=== PATIENT | male | born 1935 | race Caucasian/White ===

== ENCOUNTER 2018-06-22 10:14 | Inpatient (IN) ==
[2018-06-22] MEDS ORDERED: SALINE LOCK IV FLUID XX ONE (12:42)
[2018-06-22] MEDS ORDERED: TYLENOL PO PRN (12:42)
[2018-06-22] MEDS ORDERED: ZOFRAN IV PRN (12:42)
--- NOTE | 2018-06-22 13:12 | Diag Imaging Result Doc PS360 ---
EXAM: CHEST-2 VIEWS HISTORY: short of breath TECHNIQUE: Chest three views COMPARISON: 11/21/2014 FINDINGS: The lungs are hyperexpanded. The heart is not enlarged. The vessels are small. There are no infiltrates. No pleural effusions. IMPRESSION: Emphysema Electronically signed by Nixon Hernandez 06/22/2018 1:09 PM
[2018-06-22 14:00] LABS: BASO# 0.02 X1000 (0.0-0.2); BASO% 0.3 % (0.0-0.8); EOS# 0.09 X1000 (0.0-0.7); EOS% 1.2 % (0.0-10.0); HEMATOCRIT 47.8 % (42.0-52.0); HEMOGLOBIN 15.5 g/dL (14.0-18.0); LYMPH% 27.6 % (20.5-51.1); MCH 28.7 PG (27-31); MCHC 32.4 g/dL (33-37); MCV 88.5 FL (81-99); MONO# 0.59 X1000 (0.11-0.59); MONO% 8.1 % (1.7-9.3); MPV 9.3 FL (7.4-10.4); NEUT# 4.55 X1000 (1.4-6.5); NEUT% 62.8 % (42.2-75.2); PLT 223 X1000 (130-400); RDW 14.4 % (11.5-14.5); WBC 7.25 X1000 (4.8-10.8)
[2018-06-22 14:22] LABS: AGAP 12; ALBUMIN 3.4 g/dL (3.5-5.0); ALKALINE PHOSPHATASE 91 U/L (32-122); BUN 5 mg/dL (8-22); CALCIUM 9.1 mg/dL (8.8-10.2); CHLORIDE 97 mmol/L (98-107); COSMO 278; CREATININE 0.6 mg/dL (0.7-1.2); ESTIMATED GFR > 60; GLUCOSE 116 mg/dL (70-104); GOT 18 U/L (10-34); GPT 13 U/L (10-44); POTASSIUM 3.5 mmol/L (3.5-5.1); SODIUM 140 mmol/L (136-145); TCO2 31 mmol/L (25-35); TOTAL PROTEIN 6.8 g/dL (6.3-8.3)
[2018-06-22 14:34] LABS: FREE T4 1.31 ng/dL (0.93-1.70); TSH 1.81 uIUmL (0.27-4.20)
[2018-06-22] MEDS: DUONEB (A & A) INH SCH ×3 (14:35→23:30)
[2018-06-22 14:43] LABS: ALLEN TEST YES; BE 4.6 mmoll (-3.0-3.0); BLOOD TYPE ARTERIAL; HCO3-(ACT) 28.3 mmoll (20.0-26.0); METHB 0.6 % (0.0-1.5); MODALITY ROOM AIR; O2(CT) 20.2 mL/dL (15.0-23.0); O2HB 90.4 % (95.0-99.0); PCO2(98.6) 48 mmHg (35-45); PO2(98.6) 57 mmHg (60-100); SAMPLE BLOOD; SAO2 94.1 % (95.0-100.0); THB 15.9 g/dL (11.5-17.4); pH(98.6) 7.41 (7.35-7.45)
[2018-06-22] MEDS ORDERED: LASIX IV ONE (17:14)
[2018-06-22] MEDS ORDERED: KLOR-CON PO ONE (17:15)
[2018-06-22] MEDS: LEVAQUIN 500 MG/D5W 500 MG/100 ML IVPB IV SCH (18:28)
[2018-06-22] MEDS: NICODERM PATCH TD PRN (18:28)
--- NOTE | 2018-06-22 19:33 | Diag Imaging Result Doc PS360 ---
CT ANGIOGRM PULMONARY ARTERIES - 06/22/2018 INDICATION: dyspnea/elevated d-dimer TECHNIQUE: Axial CT images were obtained after administering intravenous contrast. Coronal MIP images were generated. COMPARISON: None FINDINGS: There is no pulmonary embolism. Heart size is normal with no pericardial effusion. There is extremely dense calcified triple-vessel coronary artery disease. There is some bronchitis in the lung bases. No definite infiltrates. Upper abdominal images are unremarkable. There are advanced degenerative changes of the spine with bridging osteophytes throughout. No acute bony lesions. IMPRESSION: Negative for pulmonary embolism. Advanced coronary artery disease. Severe bronchitis. Advanced degeneration of the spine. This exam was performed using automated exposure control, adjustment of mA or kV according to patient size, and/or use of iterative reconstruction technique Electronically signed by Manuel Mccoy 06/22/2018 7:30 PM
[2018-06-22] MEDS: BREO ELLIPTA 200/25 MCG INH INH SCH (19:50)
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
[2018-06-22] MEDS: LOPRESSOR PO SCH (20:29)
[2018-06-22] MEDS: LIPITOR PO SCH (20:30)
[2018-06-22] MEDS: ROBITUSSIN-DM PO SCH (20:31)
[2018-06-22] MEDS: HALDOL IV PRN (20:47)
[2018-06-23] MEDS: ROBITUSSIN-DM PO SCH ×6 (00:17→22:27)
[2018-06-23] MEDS: DUONEB (A & A) INH SCH ×6 (03:25→23:21)
[2018-06-23 07:42] LABS: BASO# 0.02 X1000 (0.0-0.2); BASO% 0.2 % (0.0-0.8); EOS# 0.13 X1000 (0.0-0.7); EOS% 1.6 % (0.0-10.0); HEMATOCRIT 45.7 % (42.0-52.0); HEMOGLOBIN 15.5 g/dL (14.0-18.0); IMM GRAN# 0.02 X1000 (0.0-0.04); IMM GRAN% 0.2 % (0.0-0.5); LYMPH# 1.95 X1000 (1.2-3.4); MCH 29.5 PG (27-31); MCHC 33.9 g/dL (33-37); MONO% 11.1 % (1.7-9.3); MPV 9.3 FL (7.4-10.4); NEUT# 5.09 X1000 (1.4-6.5); NEUT% 62.9 % (42.2-75.2); PLT 219 X1000 (130-400); RBC 5.25 XMIL (4.7-6.1); RDW 14.5 % (11.5-14.5); WBC 8.11 X1000 (4.8-10.8)
[2018-06-23 08:18] LABS: AGAP 11; BUN 6 mg/dL (8-22); CHLORIDE 96 mmol/L (98-107); COSMO 277; CREATININE 0.8 mg/dL (0.7-1.2); ESTIMATED GFR > 60; GLUCOSE 124 mg/dL (70-104); POTASSIUM 3.4 mmol/L (3.5-5.1); SODIUM 139 mmol/L (136-145); TCO2 32 mmol/L (25-35)
[2018-06-23] MEDS: LOVENOX SUBQ SCH (09:49)
[2018-06-23] MEDS: LOPRESSOR PO SCH ×2 (09:49→22:27)
[2018-06-23] MEDS: BREO ELLIPTA 200/25 MCG INH INH SCH (10:04)
--- NOTE | 2018-06-23 11:31 | ECHO REPORT ---
ORDER DATE: 06/22/2018 INTERPRETING PHYSICIAN: Dr. Leija REQUESTING PHYSICIAN: Dr. Fink CLINICAL INDICATIONS: This is an 82-year-old male with coronary heart disease, stents, edema, COPD. The left ventricle cannot be measured by M-mode. The findings are only related to 2D images. M-MODE MEASUREMENTS: Right ventricle: cm. Left ventricle end diastole: cm. Left ventricle end systole: cm. Posterior wall: cm. Interventricular septum: cm. Left atrium: cm. Aortic root: cm. SUMMARY OF 2-DIMENSIONAL IMAGIN. The left ventricle shows preserved contractility. Ejection fraction is probably in the order of 65%. There is a small pericardial effusion. 2. The right ventricle is slightly prominent, it shows good function. 3. Mitral valve shows normal opening of the leaflets. 4. The pulse wave Doppler of mitral inflow shows fusion of the E and the A waves. I cannot evaluate diastolic function in this case. 5. Tricuspid valve shows no significant regurgitation. 6. Pulmonary pressure is grossly estimated at 24 to 29 mmHg. 7. The aortic valve is grossly unremarkable. The Doppler pattern of the aortic valve shows no evidence of stenosis or regurgitation. 8. The pulmonic valve was really not well appreciated in this case. It was actually not seen. CONCLUSIONS: In summary, this study is very limited. The patient has very poor acoustic windows. The left ventricular systolic function appears to be normal. There may be a small pericardial effusion located posteriorly. I do not see evidence of any significant valvular abnormality, although the pulmonic valve was not visualized. The aortic and mitral valves appear to be grossly unremarkable. Clinical correlation is strongly recommended. I suspect that there is impaired left ventricular relaxation. cc: MD Malik Ricardo MD
[2018-06-23] MEDS: HALDOL IV PRN (13:00)
[2018-06-23] MEDS ORDERED: HALDOL IV ONE (14:42)
[2018-06-23 15:10] LABS: ALLEN TEST YES; BE 6.8 mmoll (-3.0-3.0); BLOOD TYPE ARTERIAL; HCO3-(ACT) 30.1 mmoll (20.0-26.0); METHB 1.1 % (0.0-1.5); MODALITY ROOM AIR; O2(CT) 19.5 mL/dL (15.0-23.0); O2HB 91.9 % (95.0-99.0); PCO2(98.6) 46 mmHg (35-45); PO2(98.6) 60 mmHg (60-100); SAMPLE BLOOD; SAO2 94.9 % (95.0-100.0); THB 15.1 g/dL (11.5-17.4); pH(98.6) 7.45 (7.35-7.45)
[2018-06-23] MEDS ORDERED: ATIVAN PO ONE (15:52)
[2018-06-23] MEDS ORDERED: ASPIRIN EC PO SCH (16:15)
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
--- NOTE | 2018-06-23 16:56 | Diag Imaging Result Doc PS360 ---
EXAM: CT HEAD W/O CONTRAST INDICATION: ms change TECHNIQUE: This exam was performed using automated exposure control, adjustment of mA or kV according to patient size, and/or use of iterative reconstruction technique. COMPARISON: None. FINDINGS: There is moderate diffuse brain atrophy. There is patchy low attenuation in the periventricular and subcortical white matter suggesting mild to moderate microangiopathy. There is no definite acute infarct given the limited sensitivity of CT versus MRI. There is no discrete intracranial mass, mass effect, or intracranial hemorrhage. The surrounding soft tissues and bony structures are essentially unremarkable. IMPRESSION: Mild to moderate chronic appearing white matter changes. No definite acute intracranial pathology by CT. Electronically signed by Hermes Smith 06/23/2018 4:54 PM
[2018-06-23] MEDS: APRESOLINE IV PRN (18:20)
[2018-06-23] MEDS ORDERED: ATIVAN IV PRN (18:49)
[2018-06-23 19:31] LABS: BASO# 0.03 X1000 (0.0-0.2); BASO% 0.4 % (0.0-0.8); EOS# 0.17 X1000 (0.0-0.7); EOS% 2.1 % (0.0-10.0); HEMATOCRIT 43.5 % (42.0-52.0); HEMOGLOBIN 14.6 g/dL (14.0-18.0); IMM GRAN# 0.02 X1000 (0.0-0.04); IMM GRAN% 0.2 % (0.0-0.5); LYMPH# 2.41 X1000 (1.2-3.4); LYMPH% 29.6 % (20.5-51.1); MCH 29.4 PG (27-31); MCHC 33.6 g/dL (33-37); MCV 87.7 FL (81-99); MONO# 0.77 X1000 (0.11-0.59); MONO% 9.5 % (1.7-9.3); NEUT# 4.74 X1000 (1.4-6.5); NEUT% 58.2 % (42.2-75.2); PLT 233 X1000 (130-400); RBC 4.96 XMIL (4.7-6.1); RDW 14.5 % (11.5-14.5); WBC 8.14 X1000 (4.8-10.8)
[2018-06-23] MEDS ORDERED: LABETALOL IV SCH (20:00)
[2018-06-23 20:04] LABS: AGAP 11; ALB/GLOB RATIO 1.7; ALBUMIN 3.5 g/dL (3.5-5.0); ALKALINE PHOSPHATASE 86 U/L (32-122); BUN 8 mg/dL (8-22); CALCIUM 8.7 mg/dL (8.8-10.2); CHLORIDE 97 mmol/L (98-107); CK PROFILE 84 U/L (24-204); COSMO 277; CREATININE 0.8 mg/dL (0.7-1.2); ESTIMATED GFR > 60; GLUCOSE 118 mg/dL (70-104); GOT 19 U/L (10-34); GPT 12 U/L (10-44); POTASSIUM 3.6 mmol/L (3.5-5.1); SODIUM 139 mmol/L (136-145); TCO2 31 mmol/L (25-35); TOTAL BILIRUBIN 0.49 mg/dL (0.20-1.00); TOTAL PROTEIN 5.6 g/dL (6.3-8.3)
[2018-06-23] MEDS ORDERED: LABETALOL IV PRN (20:15)
[2018-06-23 20:40] LABS: URINE SOURCE CATH
[2018-06-23 20:46] LABS: BILIRUBIN URINE NEGATIVE (NEGATIVE); BLOOD URINE TRACE (NEGATIVE); COLOR YELLOW; GLUCOSE URINE NEGATIVE (NEGATIVE); KETONE URINE TRACE mg/dL (NEGATIVE); LEUKOCYTES URINE NEGATIVE (NEGATIVE); NITRITE URINE NEGATIVE (NEGATIVE); PROTEIN URINE 30 mg/dL (NEGATIVE); SP GRAVITY URINE 1.022; TURBIDITY URINE CLEAR (CLEAR); UROBILINOGEN URINE 4 mg/dL (NORMAL)
[2018-06-23 20:47] LABS: UR EPITHELIAL CELLS <10 /HPF (<10); URINE BACTERIA NEGATIVE /HPF; URINE RBC <10 /HPF (<10); URINE WBC <10 /HPF (<10)
[2018-06-23] MEDS: LEVAQUIN 500 MG/D5W 500 MG/100 ML IVPB IV SCH (22:14)
[2018-06-23] MEDS: LIPITOR PO SCH (22:27)
[2018-06-23] MEDS: LASIX PO SCH (22:27)
[2018-06-23] MEDS: KLOR-CON PO SCH (22:27)
[2018-06-24] MEDS: ROBITUSSIN-DM PO SCH ×6 (02:19→23:28)
[2018-06-24] MEDS: LABETALOL IV PRN (02:20)
[2018-06-24] MEDS: DUONEB (A & A) INH SCH ×6 (03:20→23:40)
[2018-06-24 06:20] LABS: BASO# 0.02 X1000 (0.0-0.2); BASO% 0.2 % (0.0-0.8); EOS% 1.1 % (0.0-10.0); HEMATOCRIT 46.5 % (42.0-52.0); HEMOGLOBIN 15.3 g/dL (14.0-18.0); IMM GRAN# 0.04 X1000 (0.0-0.04); IMM GRAN% 0.5 % (0.0-0.5); LYMPH# 1.79 X1000 (1.2-3.4); LYMPH% 20.5 % (20.5-51.1); MCH 29.4 PG (27-31); MCHC 32.9 g/dL (33-37); MCV 89.3 FL (81-99); MONO% 10.3 % (1.7-9.3); MPV 9.5 FL (7.4-10.4); NEUT# 5.89 X1000 (1.4-6.5); NEUT% 67.4 % (42.2-75.2); PLT 194 X1000 (130-400); RBC 5.21 XMIL (4.7-6.1); RDW 14.5 % (11.5-14.5); WBC 8.74 X1000 (4.8-10.8)
[2018-06-24 07:16] LABS: AGAP 13; ALB/GLOB RATIO 1.1; ALBUMIN 3.2 g/dL (3.5-5.0); ALKALINE PHOSPHATASE 84 U/L (32-122); BUN 7 mg/dL (8-22); CALCIUM 8.5 mg/dL (8.8-10.2); CHLORIDE 98 mmol/L (98-107); COSMO 279; CREATININE 0.6 mg/dL (0.7-1.2); ESTIMATED GFR > 60; GLUCOSE 119 mg/dL (70-104); GOT 20 U/L (10-34); GPT 12 U/L (10-44); MAGNESIUM 1.9 mg/dL (1.5-2.7); POTASSIUM 3.9 mmol/L (3.5-5.1); SODIUM 140 mmol/L (136-145); TCO2 29 mmol/L (25-35); TOTAL PROTEIN 6.1 g/dL (6.3-8.3)
--- NOTE | 2018-06-24 08:06 | Diag Imaging Result Doc PS360 ---
EXAM: CHEST-PORTABLE INDICATION: productive cough TECHNIQUE: One view COMPARISON: 06/22/2018 FINDINGS: There is increasing opacity at the left lung base suggesting developing infiltrate. No other new consolidation is identified. Cardiac silhouette is stable. IMPRESSION: Increased opacity at the left lung base suggesting developing infiltrate. Electronically signed by Hermes Smith 06/24/2018 8:04 AM
--- NOTE | 2018-06-24 08:14 | Extremity Venous Study ---
PROCEDURE NAME: Venous U/S Bilateral Legs - 06/23/2018 PROCEDURE: Bilateral lower extremity venous study. REQUESTING PHYSICIAN: Dr. Fink. SENIOR COURT OFFICE ASSISTANT: Erin. INDICATIONS: Edema, which is chronic. EQUIPMENT: [employer] E 9 ultrasound system with a 9 L-D transducer. FINDINGS: Image of the bilateral lower extremity venous systems were obtained in both sagittal and transverse planes. Doppler was used to evaluate veins for spontaneity, phasicity, respiratory excursion, and digital augmentation. RESULTS: Some reflux noted in the common femoral vein on the left side, but otherwise normal venous compression, normal venous flow. No superficial or deep venous thrombosis noted. INTERPRETATION: Reflux noted in the left common femoral vein, but otherwise normal study. cc: MD Malik Rodriguez MD
[2018-06-24] MEDS: LASIX PO SCH (08:15)
[2018-06-24] MEDS: LOPRESSOR PO SCH ×2 (08:15→23:28)
[2018-06-24] MEDS: KLOR-CON PO SCH (08:15)
[2018-06-24] MEDS: LOVENOX SUBQ SCH (08:16)
[2018-06-24] MEDS: BREO ELLIPTA 200/25 MCG INH INH SCH (08:34)
[2018-06-24 12:16] LABS: ALLEN TEST YES; BE 4.1 mmoll (-3.0-3.0); BLOOD TYPE ARTERIAL; HCO3-(ACT) 27.9 mmoll (20.0-26.0); METHB 1.3 % (0.0-1.5); O2HB 91.3 % (95.0-99.0); PO2(98.6) 66 mmHg (60-100); SAMPLE BLOOD; SAO2 94.2 % (95.0-100.0); THB 15.6 g/dL (11.5-17.4); pH(98.6) 7.23 (7.35-7.45)
[2018-06-24 12:17] LABS: PCO2(98.6) 84 mmHg (35-45)
[2018-06-24 12:18] LABS: MODALITY VENTIMASK
[2018-06-24] MEDS: NS + KCL 20 MEQ 1,000 ML IV SCH (13:04)
[2018-06-24] MEDS: ZOSYN 3.375 GM in NS 50 ML IV SCH ×3 (13:05→23:47)
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
[2018-06-24 16:41] LABS: ALLEN TEST YES; BE 3.9 mmoll (-3.0-3.0); BLOOD TYPE ARTERIAL; HCO3-(ACT) 27.8 mmoll (20.0-26.0); METHB 1.3 % (0.0-1.5); O2HB 93.4 % (95.0-99.0); PO2(98.6) 65 mmHg (60-100); SAMPLE BLOOD; SAO2 96.3 % (95.0-100.0); pH(98.6) 7.36 (7.35-7.45)
[2018-06-24 16:43] LABS: MODALITY BI PAP; PCO2(98.6) 55 mmHg (35-45)
[2018-06-24] MEDS: LEVAQUIN 500 MG/D5W 500 MG/100 ML IVPB IV SCH (20:28)
[2018-06-24] MEDS: LIPITOR PO SCH (23:28)
[2018-06-25] MEDS: ROBITUSSIN-DM PO SCH ×6 (01:01→20:59)
[2018-06-25] MEDS: DUONEB (A & A) INH SCH ×6 (03:29→23:30)
[2018-06-25 05:26] LABS: BASO# 0.11 X1000 (0.0-0.2); BASO% 0.8 % (0.0-0.8); EOS# 0.01 X1000 (0.0-0.7); EOS% 0.1 % (0.0-10.0); HEMATOCRIT 47.4 % (42.0-52.0); HEMOGLOBIN 15.7 g/dL (14.0-18.0); IMM GRAN# 0.04 X1000 (0.0-0.04); IMM GRAN% 0.3 % (0.0-0.5); LYMPH# 1.24 X1000 (1.2-3.4); LYMPH% 9.1 % (20.5-51.1); MCH 30.3 PG (27-31); MCHC 33.1 g/dL (33-37); MCV 91.5 FL (81-99); MONO# 1.26 X1000 (0.11-0.59); MONO% 9.2 % (1.7-9.3); MPV 8.9 FL (7.4-10.4); NEUT# 11.03 X1000 (1.4-6.5); NEUT% 80.5 % (42.2-75.2); PLT 213 X1000 (130-400); RBC 5.18 XMIL (4.7-6.1); RDW 14.6 % (11.5-14.5); WBC 13.69 X1000 (4.8-10.8)
[2018-06-25] MEDS: ZOSYN 3.375 GM in NS 50 ML IV SCH ×4 (05:33→17:54)
[2018-06-25 05:59] LABS: AGAP 11; BUN 13 mg/dL (8-22); CALCIUM 8.8 mg/dL (8.8-10.2); CHLORIDE 97 mmol/L (98-107); COSMO 275; ESTIMATED GFR > 60; GLUCOSE 123 mg/dL (70-104); POTASSIUM 3.7 mmol/L (3.5-5.1); SODIUM 137 mmol/L (136-145); TCO2 29 mmol/L (25-35)
[2018-06-25] MEDS: BREO ELLIPTA 200/25 MCG INH INH SCH (07:46)
--- NOTE | 2018-06-25 07:56 | PROGRESS NOTE ---
DATE: 06/25/2018 SUBJECTIVE: Mr. Gudino is an 82-year-old white gentleman, admitted with chest congestion, cough, some shortness of breath, confusion. The patient was sick for 2 weeks. After admission on the floor, the patient had more confusion, agitation, delirium. Patient was transferred to ICU. The patient was given Ativan, started on IV antibiotics, bronchodilator treatment, BiPAP. His workup did reveal hypercapnic respiratory failure. The patient is doing better. No high-grade fever or chills. History part is limited. No nausea or vomiting. Denied any chest pain. No diarrhea. The patient has Francois catheter. No abdominal pain. Admission history, physical, and workup reviewed. OBJECTIVE: Vital Signs: Blood pressure 110/70, pulse 99, respirations 21, temperature 98 degrees. Skin: Senile turgor. The patient does have some bruise teresita on the arm. Eyes: Pupils reacting to light. Neck: Supple. No JVD. Lungs: Bilateral occasional wheezing. Cardiovascular: S1 and S2 heard. Abdomen: Soft, globular. Bowel sounds present. Bilateral minimal swelling in the legs. Central Nervous System: Alert, awake. Able to move all 4 limbs. DIAGNOSTIC STUDIES: Laboratory data done today: WBC count 13.69, hemoglobin 15.7, hematocrit 47.4, platelet count was 213. Blood gas done yesterday did reveal pCO2 of 55 and PO2 of 65; I started patient on BiPAP. Electrolytes done today fairly benign; BUN 13, creatinine was 1. Chest x-ray: Official result is pending. CONSIDERATION: 1. Hypercapnic respiratory failure. 2. Bronchitis. 3. Early left lung pneumonia. 4. Chronic obstructive pulmonary disease exacerbation. 5. Coronary artery disease. 6. Hyperlipidemia. 7. Chronic constipation. PLAN: We will continue current treatment, close observation. The patient is on DVT prophylaxis, bronchodilator treatment, IV antibiotics, close observation. cc: MD Malik Cerda MD
--- NOTE | 2018-06-25 08:06 | Diag Imaging Result Doc PS360 ---
EXAM: CHEST-PORTABLE INDICATION: dyspnea TECHNIQUE: One view COMPARISON: 06/24/2018 FINDINGS: The left basilar retrocardiac opacity is essentially stable given slight differences in positioning. There is stable interstitial thickening at the right lung base. No new consolidation is identified. Cardiac silhouette is stable. IMPRESSION: Stable chest. Electronically signed by Hermes Smith 06/25/2018 8:04 AM
[2018-06-25] MEDS: LOVENOX SUBQ SCH (09:56)
[2018-06-25] MEDS: KLOR-CON PO SCH (09:56)
[2018-06-25] MEDS: LASIX PO SCH (09:57)
[2018-06-25] MEDS: LOPRESSOR PO SCH ×2 (09:57→20:01)
[2018-06-25] MEDS: NS + KCL 20 MEQ 1,000 ML IV SCH (11:22)
[2018-06-25] MEDS: LABETALOL IV PRN (18:11)
[2018-06-25] MEDS: LEVAQUIN 500 MG/D5W 500 MG/100 ML IVPB IV SCH (19:57)
[2018-06-25] MEDS: LIPITOR PO SCH (20:01)
[2018-06-26] MEDS: ZOSYN 3.375 GM in NS 50 ML IV SCH ×4 (01:18→17:31)
[2018-06-26] MEDS: ROBITUSSIN-DM PO SCH ×6 (01:28→21:35)
[2018-06-26] MEDS: DUONEB (A & A) INH SCH ×6 (03:51→23:30)
[2018-06-26 06:52] LABS: BASO# 0.01 X1000 (0.0-0.2); BASO% 0.1 % (0.0-0.8); EOS# 0.02 X1000 (0.0-0.7); EOS% 0.2 % (0.0-10.0); HEMATOCRIT 43.6 % (42.0-52.0); HEMOGLOBIN 14.1 g/dL (14.0-18.0); IMM GRAN# 0.06 X1000 (0.0-0.04); IMM GRAN% 0.5 % (0.0-0.5); LYMPH# 1.09 X1000 (1.2-3.4); LYMPH% 9.6 % (20.5-51.1); MCH 29.4 PG (27-31); MCHC 32.3 g/dL (33-37); MCV 90.8 FL (81-99); MONO# 0.79 X1000 (0.11-0.59); MPV 9.7 FL (7.4-10.4); NEUT# 9.38 X1000 (1.4-6.5); NEUT% 82.6 % (42.2-75.2); PLT 240 X1000 (130-400); RDW 14.7 % (11.5-14.5); WBC 11.35 X1000 (4.8-10.8)
[2018-06-26 07:12] LABS: AGAP 13; ALBUMIN 2.9 g/dL (3.5-5.0); ALKALINE PHOSPHATASE 69 U/L (32-122); BUN 14 mg/dL (8-22); CHLORIDE 100 mmol/L (98-107); COSMO 282; CREATININE 0.8 mg/dL (0.7-1.2); ESTIMATED GFR > 60; GLUCOSE 102 mg/dL (70-104); GOT 20 U/L (10-34); GPT 11 U/L (10-44); POTASSIUM 3.9 mmol/L (3.5-5.1); SODIUM 141 mmol/L (136-145); TCO2 28 mmol/L (25-35); TOTAL BILIRUBIN 0.76 mg/dL (0.20-1.00); TOTAL PROTEIN 5.9 g/dL (6.3-8.3)
--- NOTE | 2018-06-26 07:56 | EKG Report ---
Test Performed on : 06/24/2018 3:27:21 PM Test Reason : ICU. NO EKG ORDER FOR MUSE Blood Pressure : / mmHG Vent. Rate : 107 BPM Atrial Rate : 107 BPM P-R Int : 206 ms QRS Dur : 074 ms QT Int : 338 ms P-R-T Axes : 019 268 042 degrees QTc Int : 451 ms Sinus tachycardia. Low voltage QRS Inferior infarct , age undetermined Anterolateral infarct , age undetermined Abnormal ECG No previous ECGs available Confirmed by Brian SHAH, Woody Goodson ([id number]) on 06/26/2018 12:48:39 PM
[2018-06-26] MEDS: BREO ELLIPTA 200/25 MCG INH INH SCH (08:21)
[2018-06-26] MEDS: KLOR-CON PO SCH (08:57)
[2018-06-26] MEDS: LOVENOX SUBQ SCH (08:57)
[2018-06-26] MEDS: LOPRESSOR PO SCH ×2 (08:57→20:38)
[2018-06-26] MEDS: LASIX PO SCH (08:57)
[2018-06-26] MEDS: ATIVAN IV PRN (10:16)
[2018-06-26] MEDS: NS + KCL 20 MEQ 1,000 ML IV SCH (12:18)
[2018-06-26] MEDS: APRESOLINE IV PRN (16:22)
[2018-06-26] MEDS: LEVAQUIN 500 MG/D5W 500 MG/100 ML IVPB IV SCH (20:38)
[2018-06-26] MEDS: LIPITOR PO SCH (20:38)
[2018-06-27] MEDS: ZOSYN 3.375 GM in NS 50 ML IV SCH ×4 (01:18→17:29)
[2018-06-27] MEDS: ROBITUSSIN-DM PO SCH ×5 (01:19→16:23)
[2018-06-27] MEDS: DUONEB (A & A) INH SCH ×6 (03:55→23:30)
[2018-06-27] MEDS: BREO ELLIPTA 200/25 MCG INH INH SCH (07:35)
[2018-06-27] MEDS: LOPRESSOR PO SCH (08:00)
[2018-06-27] MEDS: LASIX PO SCH (08:02)
[2018-06-27] MEDS: LOVENOX SUBQ SCH (08:02)
[2018-06-27] MEDS: KLOR-CON PO SCH (08:02)
[2018-06-27 09:34] LABS: BASO# 0.03 X1000 (0.0-0.2); BASO% 0.2 % (0.0-0.8); EOS# 0.03 X1000 (0.0-0.7); EOS% 0.2 % (0.0-10.0); HEMATOCRIT 46.3 % (42.0-52.0); HEMOGLOBIN 14.4 g/dL (14.0-18.0); IMM GRAN# 0.06 X1000 (0.0-0.04); IMM GRAN% 0.4 % (0.0-0.5); LYMPH# 1.85 X1000 (1.2-3.4); LYMPH% 13.8 % (20.5-51.1); MCHC 31.1 g/dL (33-37); MCV 93.3 FL (81-99); MONO# 1.72 X1000 (0.11-0.59); MONO% 12.9 % (1.7-9.3); MPV 9.1 FL (7.4-10.4); NEUT# 9.67 X1000 (1.4-6.5); NEUT% 72.5 % (42.2-75.2); PLT 247 X1000 (130-400); RBC 4.96 XMIL (4.7-6.1); RDW 15.1 % (11.5-14.5); WBC 13.36 X1000 (4.8-10.8)
--- NOTE | 2018-06-27 09:48 | Diag Imaging Result Doc PS360 ---
EXAM: CHEST-PORTABLE HISTORY: lung infiltrates TECHNIQUE: Portable chest single view COMPARISON: 06/25/2018 FINDINGS: There are infiltrates and atelectasis in the left lung base with a tiny effusion. The heart remains mildly prominent. Partial clearing in the right lung base. IMPRESSION: No change on the left, but with interval improvement on the right. Electronically signed by Nixon Hernandez 06/27/2018 9:45 AM
[2018-06-27 10:04] LABS: ALLEN TEST NO; BE 7.3 mmoll (-3.0-3.0); BLOOD TYPE ARTERIAL; HCO3-(ACT) 30.6 mmoll (20.0-26.0); METHB 1.5 % (0.0-1.5); O2(CT) 19.2 mL/dL (15.0-23.0); O2HB 95.1 % (95.0-99.0); PO2(98.6) 91 mmHg (60-100); SAMPLE BLOOD; SAO2 98.3 % (95.0-100.0); THB 14.3 g/dL (11.5-17.4); pH(98.6) 7.29 (7.35-7.45)
[2018-06-27 10:07] LABS: MODALITY VENTIMASK; PCO2(98.6) 77 mmHg (35-45)
[2018-06-27 10:26] LABS: AGAP 17; BUN 13 mg/dL (8-22); CALCIUM 9.2 mg/dL (8.8-10.2); CHLORIDE 102 mmol/L (98-107); COSMO 292; CREATININE 0.8 mg/dL (0.7-1.2); ESTIMATED GFR > 60; GLUCOSE 85 mg/dL (70-104); POTASSIUM 4.4 mmol/L (3.5-5.1); SODIUM 147 mmol/L (136-145); TCO2 28 mmol/L (25-35)
[2018-06-27] MEDS: NS + KCL 20 MEQ 1,000 ML IV SCH (11:13)
[2018-06-27] MEDS ORDERED: D5W 500 ML IV SCH (12:15)
[2018-06-27] MEDS: ZYVOX 600 MG/D5W 600 MG/300 ML IVPB IV SCH (12:43)
[2018-06-27] MEDS: CLINIMIX E 4.25%-5% SOLUTION 1,000 ML IV SCH (12:43)
[2018-06-27] MEDS ORDERED: PEPCID PO SCH (13:00)
[2018-06-27] MEDS ORDERED: CARDIZEM CD PO SCH (13:15)
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
--- NOTE | 2018-06-27 13:37 | CARDIOLOGY CONSULTATION ---
DATE: 06/27/2018 REASON FOR CONSULTATION: The patient is being treated for pneumonia. Cardiology was consulted for transient supraventricular tachycardia. HISTORY OF PRESENT ILLNESS: An 82-year-old gentleman, who was admitted with 2-weeks history of confusion with cough and wheezing. Patient was admitted and started on antibiotics. CT scan of his chest was done which revealed severe bronchitis. There was no pulmonary embolism. Chest x-ray suggestive of infiltrate. The patient is currently on Zyvox and Zosyn. Patient is also on BiPAP. Currently his heart rate is under control. He is in sinus rhythm. Heart rate of 65, blood pressure is 157/86. The patient is comfortable, does not complain of chest pain. REVIEW OF SYSTEMS: GI system: There is no history of nausea, vomiting, or diarrhea. There is no history of hematemesis or melena. Central nervous system: Confusion noted. No focal weakness. system: No dysuria or hematuria. PAST MEDICAL HISTORY: 1. Coronary artery disease, status post stent placement to the left anterior descending artery and right coronary artery in the past. 2. Hypertension. 3. Dyslipidemia. 4. COPD. History of smoking. 5. History of remote bleeding ulcers. 6. Renal stones. 7. History of CVA. Left leg weakness in the past. 8. Other surgeries include back surgery. 9. Neck surgery with bony spurs. SOCIAL HISTORY: Patient lives in [place]. He is , has 2 children. Greater than 90 pack- year history of smoking. PHYSICAL EXAMINATION: Vital Signs: Blood pressure was 157/90, heart rate 69. Neck: Jugular venous pressure could not be assessed. Cardiovascular System: First and second heart sounds were heard. There was no S3 or gallop. Respiratory System: Bilateral expiratory wheeze. Abdomen: Soft, nontender. Extremities: Examination of his extremities revealed trace edema. Central Nervous System: Patient slightly confused, moving extremities. Detailed central nervous system examination not performed. LABORATORY EXAMINATION: Revealed sodium 147, potassium 4.4, BUN 13, creatinine 0.8. WBC 13.36, hemoglobin 14, hematocrit 46, platelet count of 247. RADIOLOGY EXAMINATION: Chest CT and x-ray as above. ASSESSMENT AND PLAN: Mr. Chirag Gudino is an 82-year-old gentleman with history of hypertension, hyperlipidemia, coronary artery disease, severe chronic obstructive pulmonary disease, who is admitted with altered mental status, weakness and cough with wheezing. Patient has respiratory tract infection with severe bronchitis and likely pneumonia. He is on multiple antibiotics. From a cardiac standpoint, he went into transient episode of supraventricular tachycardia. Currently, he is in sinus rhythm. RECOMMENDATIONS: 1. We will treat him with the Cardizem CD 180 mg a day. We will discontinue his beta blockers. 2. His echocardiogram revealed preserved left ventricular systolic function. Ejection fraction of 65%. No significant valvular abnormality. 3. Pneumonia. Continue with the current treatment. Thank you for the consult. We will follow hospital course. cc: MD Malik Pandey MD
[2018-06-27] MEDS: LIPITOR PO SCH (20:25)
[2018-06-27] MEDS: LEVAQUIN 500 MG/D5W 500 MG/100 ML IVPB IV SCH (20:32)
[2018-06-27] MEDS: ATIVAN IV PRN (23:40)
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
[2018-06-28] MEDS: ZOSYN 3.375 GM in NS 50 ML IV SCH ×4 (00:57→18:34)
[2018-06-28] MEDS: ZYVOX 600 MG/D5W 600 MG/300 ML IVPB IV SCH ×2 (00:57→12:25)
[2018-06-28] MEDS: ROBITUSSIN-DM PO SCH ×2 (01:39→07:01)
[2018-06-28] MEDS: DUONEB (A & A) INH SCH ×6 (03:29→23:39)
[2018-06-28 04:32] LABS: ALLEN TEST YES; BE 9.8 mmoll (-3.0-3.0); BLOOD TYPE ARTERIAL; HCO3-(ACT) 32.4 mmoll (20.0-26.0); METHB 1.5 % (0.0-1.5); O2(CT) 19.8 mL/dL (15.0-23.0); O2HB 93.1 % (95.0-99.0); PO2(98.6) 70 mmHg (60-100); SAMPLE BLOOD; SAO2 96.5 % (95.0-100.0); THB 15.1 g/dL (11.5-17.4); pH(98.6) 7.44 (7.35-7.45)
[2018-06-28 04:41] LABS: MODALITY BI PAP; PCO2(98.6) 53 mmHg (35-45)
[2018-06-28 04:46] LABS: BASO# 0.02 X1000 (0.0-0.2); BASO% 0.2 % (0.0-0.8); EOS# 0.13 X1000 (0.0-0.7); EOS% 1.2 % (0.0-10.0); HEMATOCRIT 43.8 % (42.0-52.0); HEMOGLOBIN 14.2 g/dL (14.0-18.0); IMM GRAN# 0.04 X1000 (0.0-0.04); IMM GRAN% 0.4 % (0.0-0.5); LYMPH# 1.43 X1000 (1.2-3.4); LYMPH% 13.1 % (20.5-51.1); MCH 29.6 PG (27-31); MCHC 32.4 g/dL (33-37); MCV 91.3 FL (81-99); MONO% 10.1 % (1.7-9.3); NEUT# 8.18 X1000 (1.4-6.5); PLT 244 X1000 (130-400); RDW 14.8 % (11.5-14.5)
[2018-06-28 05:40] LABS: AGAP 13; BUN 14 mg/dL (8-22); CALCIUM 9.3 mg/dL (8.8-10.2); CHLORIDE 100 mmol/L (98-107); COSMO 289; CREATININE 0.7 mg/dL (0.7-1.2); ESTIMATED GFR > 60; GLUCOSE 134 mg/dL (70-104); MAGNESIUM 1.9 mg/dL (1.5-2.7); SODIUM 144 mmol/L (136-145); TCO2 31 mmol/L (25-35)
[2018-06-28] MEDS: CLINIMIX E 4.25%-5% SOLUTION 1,000 ML IV SCH ×2 (05:51→20:05)
[2018-06-28] MEDS: POTASSIUM PHOSPHATE 30 MMOL in NS 250 ML IV SCH ×2 (06:46→11:27)
--- NOTE | 2018-06-28 07:19 | Diag Imaging Result Doc PS360 ---
EXAM: CHEST-PORTABLE INDICATION: respiratory failure TECHNIQUE: One view COMPARISON: 06/27/2018 FINDINGS: The small left effusion and adjacent atelectasis is approximately stable. No new consolidation is identified. Cardiac silhouette is stable. IMPRESSION: Stable chest. Electronically signed by Hermes Smith 06/28/2018 7:16 AM
[2018-06-28] MEDS: BREO ELLIPTA 200/25 MCG INH INH SCH (08:00)
[2018-06-28] MEDS ORDERED: POTASSIUM CHLORIDE 20 MEQ/SWI 20 MEQ/100 ML IVPB IV ONE (08:53)
[2018-06-28] MEDS ORDERED: KLOR-CON PO SCH (09:00)
[2018-06-28] MEDS ORDERED: ASPIRIN PO SCH (09:00)
[2018-06-28] MEDS: LOVENOX SUBQ SCH (09:14)
[2018-06-28] MEDS: LASIX IV SCH (09:17)
[2018-06-28] MEDS: PEPCID IV SCH ×2 (09:18→20:05)
[2018-06-28] MEDS ORDERED: POTASSIUM PHOSPHATE 30 MMOL in NS 250 ML IV ONE (11:00)
[2018-06-28] MEDS: ATIVAN IV PRN (13:44)
[2018-06-28] MEDS: NICODERM PATCH TD PRN (13:44)
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
[2018-06-28] MEDS: LEVAQUIN 500 MG/D5W 500 MG/100 ML IVPB IV SCH (20:06)
--- NOTE | 2018-06-28 23:03 | PULMONOLOGY PROGRESS NOTE ---
DATE: 06/28/2018 SUBJECTIVE: The patient is awake, alert, and conversant. He continues to have a wet cough. He has no significant work of breathing this morning. OBJECTIVE: Vital Signs: The patient has been afebrile for the last 24 hours. Blood pressure 147/72, heart rate 96, respiratory rate 23, oxygen saturation 94% on 50% face mask. HEENT: Pupils are equal and reactive. Oropharynx appears clear. Neck: Supple. Chest: Reveals coarse rhonchi bilaterally. Cardiac: S1, S2. Abdomen: Soft. Extremities: Are without edema. LABORATORIES: Chest x-ray reveals left basilar infiltrate without change. White blood count 10.90, hemoglobin 14.2, platelet count 244,000. Arterial blood gas on BiPAP pH 7.44, pCO2 of 53, PO2 of 70. Phosphorus is significantly low at 1.0. IMPRESSION: An 82-year-old with left lower lobe pneumonia, chronic obstructive pulmonary disease exacerbation, acute hypoxemic respiratory failure, acute on chronic hypercapnic respiratory failure, with leukocytosis. He is having a component of the refeeding syndrome with drop and phosphorus level. Clinically, he appears to be stable to improving. RECOMMENDATIONS: 1. Continue current antibiotic regimen. 2. Continue bronchial hygiene. 3. Continue to cycle BiPAP at bedtime and p.r.n. 4. Continue Clinimix. 5. We will maintain NPO except for ice chips until his oxygen requirements have decreased and he can be mobilized and out of bed. cc: MD Malik Bae MD
[2018-06-29] MEDS: ZOSYN 3.375 GM in NS 50 ML IV SCH ×5 (00:27→23:38)
[2018-06-29] MEDS: ATIVAN IV PRN ×2 (00:29→23:39)
[2018-06-29] MEDS: ZYVOX 600 MG/D5W 600 MG/300 ML IVPB IV SCH ×3 (01:00→23:38)
[2018-06-29] MEDS: DUONEB (A & A) INH SCH ×6 (03:15→23:59)
[2018-06-29 04:24] LABS: BLOOD TYPE ARTERIAL; SAMPLE BLOOD
[2018-06-29 04:25] LABS: ALLEN TEST YES; BE 11.6 mmoll (-3.0-3.0); HCO3-(ACT) 33.9 mmoll (20.0-26.0); METHB 1.8 % (0.0-1.5); MODALITY BI PAP; O2(CT) 19.7 mL/dL (15.0-23.0); O2HB 96.4 % (95.0-99.0); PCO2(98.6) 83 mmHg (35-45); PO2(98.6) 244 mmHg (60-100); SAO2 100.7 % (95.0-100.0); THB 14.1 g/dL (11.5-17.4); pH(98.6) 7.31 (7.35-7.45)
[2018-06-29 04:28] LABS: BASO# 0.03 X1000 (0.0-0.2); BASO% 0.3 % (0.0-0.8); EOS# 0.35 X1000 (0.0-0.7); HEMATOCRIT 43.2 % (42.0-52.0); HEMOGLOBIN 13.9 g/dL (14.0-18.0); IMM GRAN# 0.04 X1000 (0.0-0.04); IMM GRAN% 0.3 % (0.0-0.5); LYMPH# 1.66 X1000 (1.2-3.4); LYMPH% 14.2 % (20.5-51.1); MCH 29.4 PG (27-31); MCHC 32.2 g/dL (33-37); MCV 91.5 FL (81-99); MONO# 1.33 X1000 (0.11-0.59); MONO% 11.4 % (1.7-9.3); MPV 8.7 FL (7.4-10.4); NEUT# 8.27 X1000 (1.4-6.5); NEUT% 70.8 % (42.2-75.2); PLT 220 X1000 (130-400); RBC 4.72 XMIL (4.7-6.1); RDW 14.8 % (11.5-14.5); WBC 11.68 X1000 (4.8-10.8)
[2018-06-29 04:51] LABS: AGAP 6; BUN 17 mg/dL (8-22); CALCIUM 8.3 mg/dL (8.8-10.2); CHLORIDE 97 mmol/L (98-107); COSMO 283; CREATININE 0.6 mg/dL (0.7-1.2); ESTIMATED GFR > 60; GLUCOSE 129 mg/dL (70-104); MAGNESIUM 1.9 mg/dL (1.5-2.7); PHOSPHORUS 4.3 mg/dL (2.7-4.5); POTASSIUM 4.1 mmol/L (3.5-5.1); SODIUM 140 mmol/L (136-145); TCO2 37 mmol/L (25-35)
[2018-06-29] MEDS ORDERED: LASIX IV ONE (05:26)
--- NOTE | 2018-06-29 07:41 | Diag Imaging Result Doc PS360 ---
EXAM: CHEST-PORTABLE INDICATION: respiratory failure TECHNIQUE: One view COMPARISON: 06/28/2018 FINDINGS: The small left pleural effusion with adjacent atelectasis is approximately stable. There is stable increased central vasculature suggesting pulmonary venous congestion. No new consolidation is identified. Cardiac silhouette is stable. IMPRESSION: Stable chest. Electronically signed by Hermes Smith 06/29/2018 7:39 AM
[2018-06-29] MEDS: BREO ELLIPTA 200/25 MCG INH INH SCH (07:47)
[2018-06-29] MEDS: LASIX IV SCH (09:07)
[2018-06-29] MEDS: PEPCID IV SCH ×2 (09:07→21:25)
[2018-06-29] MEDS: LOVENOX SUBQ SCH (09:08)
[2018-06-29] MEDS: CLINIMIX E 4.25%-5% SOLUTION 1,000 ML IV SCH ×2 (09:09→21:48)
[2018-06-29] MEDS: POTASSIUM CHLORIDE 20 MEQ/SWI 20 MEQ/100 ML IVPB IV SCH ×2 (10:00→13:00)
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
[2018-06-29] MEDS ORDERED: LANOXIN IV SCH (13:45)
--- NOTE | 2018-06-29 13:59 | EKG Report ---
Test Performed on : 06/29/2018 05:35:14 AM Test Reason : CCU. No order in [place] Blood Pressure : / mmHG Vent. Rate : 107 BPM Atrial Rate : 107 BPM P-R Int : 184 ms QRS Dur : 076 ms QT Int : 336 ms P-R-T Axes : 028 -52 -02 degrees QTc Int : 448 ms Sinus tachycardia. with premature atrial complexes. Left axis deviation Inferior infarct (cited on or before 24-JUN-2018) Anteroseptal infarct (cited on or before 24-JUN-2018) Abnormal ECG When compared with ECG of 24-JUN-2018 15:27, premature atrial complexes. are now present Non-specific change in ST segment in Lateral leads Nonspecific T wave abnormality has replaced inverted T waves in Anterior leads Confirmed by Brian SHAH, Woody Goodson ([id number]) on 06/30/2018 10:53:31 AM
--- NOTE | 2018-06-29 14:12 | CARDIOLOGY PROGRESS NOTE ---
DATE: 06/29/2018 SUBJECTIVE: Cardiology was consulted for transient supraventricular tachycardia, he has pneumonia, he has coronary artery disease, left anterior descending artery stent in the past and right coronary artery stent, hypertension, COPD, history of bleeding ulcers, history of CVA. He has hypercapnic respiratory failure during this hospitalization, and has also had hypomagnesemia which has been repleted. The patient was agitated, was given Ativan. He is arousable, says a few words. Shallow respiration. OBJECTIVE: Vital Signs: Blood pressure 110/72. Cardiovascular system: First and second heart sounds were heard. Respiratory system: Decreased breath sounds at base with bilateral wheeze. Edema noted bilaterally. Abdomen: Soft. Central nervous system: Could not be assessed. LABORATORY EXAMINATION: WBC 11.8, hemoglobin 13.9, hematocrit 43, platelet count of 220. Hematology: WBC 11.68, hemoglobin 13.9, hematocrit 43.2, platelet count of 220. PLAN: From a cardiac standpoint, he is not taking any medications orally. He had supraventricular tachycardia and has transient episodes of rapid heart rate going up to 160s, supraventricular tachycardia or atrial fibrillation. He is on multiple drips. I will try to see if he can be controlled with digoxin 0.25 mg intravenously on a daily basis to control these paroxysms of SVT likely, which could be a atrial fibrillation as well. Once he is able to take p.o. medications, we will put him on p.o. Cardizem. He has pneumonia, hypercapnic respiratory failure and COPD. Continue with antibiotics. As planned, he is on BiPAP as well. Prognosis is guarded. His last echocardiogram revealed preserved left ventricular systolic function. I have not made any other changes. He had electrolyte imbalance, which has been corrected. cc: MD Malik Pandey MD
[2018-06-29] MEDS: LANOXIN IV SCH (15:14)
[2018-06-29] MEDS: LEVAQUIN 500 MG/D5W 500 MG/100 ML IVPB IV SCH (21:24)
--- NOTE | 2018-06-29 21:56 | PULMONOLOGY PROGRESS NOTE ---
DATE: 06/29/2018 SUBJECTIVE: The patient is in restraints. He had some periods of agitation last evening. He has mild work of breathing. He is arousable but will not follow commands. OBJECTIVE: The patient has been afebrile for the last 24 hours. Blood pressure 126/75, heart rate 105, respiratory rate 26, oxygen saturation 100%. HEENT: Pupils are equal and reactive. Oropharynx appears dry. Neck is supple. Chest reveals prolonged expiratory phase with crackles and rhonchi bilaterally. Cardiac exam: S1, S2. Abdomen is soft. Diminished bowel sounds. Extremities are without edema. DIAGNOSTIC DATA: Chest x-ray reveals left lower lobe infiltrate which is stable, along with mild vascular congestion. LABORATORY DATA: Arterial blood gas reveals pH 7.31, pCO2 of 83, pO2 of 244. White blood count 11.68, hemoglobin 13.9, platelet count 220,000. IMPRESSION: An 82-year-old with: 1. Left lower lobe pneumonia. 2. Chronic obstructive pulmonary disease exacerbation. 3. Acute hypoxemic respiratory failure. 4. Anivy-oz-[id number] hypercapnic respiratory failure. 5. Delirium. DISCUSSION: An 82-year-old with problems outlined above. The patient's daughter reports he has been wheelchair-bound for approximately the last 5 years following repair of a cervical spine spur. The patient has previously indicated he did not want to be placed on life support or to undergo cardiopulmonary resuscitation, and has a Living Will. I discussed his prognosis with his daughter. Given his age, delirium and COPD, his prognosis is guarded and there is a high probability he will get worse, requiring intubation. She will discuss this with her mother. RECOMMENDATIONS: 1. Continue bronchial hygiene. 2. Continue current antibiotics. 3. Cycle BiPAP at bedtime and p.r.n. 4. Continue Clinimix. 5. Encourage ice chips. 6. Ongoing end-of-life discussions. cc: MD Malik Bae MD
[2018-06-30] MEDS: DUONEB (A & A) INH SCH ×6 (03:30→23:55)
[2018-06-30] MEDS: ATIVAN IV PRN ×2 (03:58→21:20)
[2018-06-30 04:36] LABS: ALLEN TEST YES; BE 10.2 mmoll (-3.0-3.0); BLOOD TYPE ARTERIAL; HCO3-(ACT) 32.9 mmoll (20.0-26.0); METHB 1.3 % (0.0-1.5); O2(CT) 21.8 mL/dL (15.0-23.0); O2HB 97.2 % (95.0-99.0); PO2(98.6) 156 mmHg (60-100); SAMPLE BLOOD; SAO2 99.6 % (95.0-100.0); THB 15.8 g/dL (11.5-17.4); pH(98.6) 7.44 (7.35-7.45)
[2018-06-30 04:37] LABS: MODALITY BI PAP; PCO2(98.6) 54 mmHg (35-45)
[2018-06-30] MEDS: ZOSYN 3.375 GM in NS 50 ML IV SCH ×3 (05:11→18:10)
--- NOTE | 2018-06-30 07:30 | Diag Imaging Result Doc PS360 ---
EXAM: CHEST-PORTABLE INDICATION: respiratory failure TECHNIQUE: One view COMPARISON: 06/29/2018 FINDINGS: There is a retrocardiac consolidation at the left lung base that is approximately stable. There is probably a small stable left effusion as well. Mild pulmonary venous congestion is stable. No new consolidation is identified. Cardiac silhouette is stable. IMPRESSION: Essentially stable chest. Electronically signed by Hermes Smith 06/30/2018 7:28 AM
[2018-06-30] MEDS: BREO ELLIPTA 200/25 MCG INH INH SCH (08:05)
[2018-06-30] MEDS: LANOXIN IV SCH (09:09)
[2018-06-30] MEDS: PEPCID IV SCH ×2 (09:10→20:51)
[2018-06-30] MEDS: LOVENOX SUBQ SCH (09:10)
[2018-06-30] MEDS: LASIX IV SCH (09:10)
[2018-06-30 09:42] LABS: BASO# 0.03 X1000 (0.0-0.2); BASO% 0.2 % (0.0-0.8); EOS# 0.23 X1000 (0.0-0.7); EOS% 1.8 % (0.0-10.0); HEMATOCRIT 45.7 % (42.0-52.0); HEMOGLOBIN 14.8 g/dL (14.0-18.0); IMM GRAN# 0.04 X1000 (0.0-0.04); IMM GRAN% 0.3 % (0.0-0.5); LYMPH# 1.61 X1000 (1.2-3.4); LYMPH% 12.9 % (20.5-51.1); MCH 29.2 PG (27-31); MCHC 32.4 g/dL (33-37); MCV 90.1 FL (81-99); MONO# 1.09 X1000 (0.11-0.59); MONO% 8.8 % (1.7-9.3); MPV 9.3 FL (7.4-10.4); NEUT# 9.45 X1000 (1.4-6.5); PLT 230 X1000 (130-400); RBC 5.07 XMIL (4.7-6.1); RDW 14.7 % (11.5-14.5); WBC 12.45 X1000 (4.8-10.8)
[2018-06-30 09:57] LABS: AGAP 7; BUN 31 mg/dL (8-22); CALCIUM 8.9 mg/dL (8.8-10.2); CHLORIDE 91 mmol/L (98-107); COSMO 276; CREATININE 1.1 mg/dL (0.7-1.2); ESTIMATED GFR > 60; GLUCOSE 123 mg/dL (70-104); MAGNESIUM 2.1 mg/dL (1.5-2.7); POTASSIUM 4.4 mmol/L (3.5-5.1); SODIUM 134 mmol/L (136-145); TCO2 36 mmol/L (25-35)
[2018-06-30] MEDS: CLINIMIX E 4.25%-5% SOLUTION 1,000 ML IV SCH (11:51)
[2018-06-30] MEDS: ZYVOX 600 MG/D5W 600 MG/300 ML IVPB IV SCH (11:52)
--- NOTE | 2018-06-30 12:40 | EKG Report ---
Test Performed on : 06/29/2018 3:19:19 PM Test Reason : cp Blood Pressure : / mmHG Vent. Rate : 105 BPM Atrial Rate : 105 BPM P-R Int : 180 ms QRS Dur : 074 ms QT Int : 344 ms P-R-T Axes : -13 -57 031 degrees QTc Int : 454 ms Sinus tachycardia. with premature atrial complexes. Left axis deviation Inferior infarct (cited on or before 24-JUN-2018) Anteroseptal infarct (cited on or before 24-JUN-2018) Abnormal ECG When compared with ECG of 29-JUN-2018 05:35, (Unconfirmed) No significant change was found Confirmed by Brian SHAH, Woody Goodson ([id number]) on 07/03/2018 9:27:30 AM
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
[2018-06-30] MEDS: LEVAQUIN 500 MG/D5W 500 MG/100 ML IVPB IV SCH (20:51)
--- NOTE | 2018-06-30 21:04 | PULMONOLOGY PROGRESS NOTE ---
DATE: 06/30/2018 SUBJECTIVE: The patient is more arousable today. He does attempt to answer questions by mumbling. He has less work of breathing. OBJECTIVE: The patient has been afebrile for the last 24 hours. Blood pressure 119/74, heart rate 109, respiratory rate 17, oxygen saturation 98%. HEENT: Pupils are equal and reactive. Oropharynx appears clear. Neck: Supple. Chest: Reveals coarse rhonchi bilaterally. Cardiac: S1-S2. Abdomen: Soft. Extremities: Reveal trace edema. LABORATORIES: Chest x-ray reveals continued left basilar infiltrate. White blood count 12.5, hemoglobin 14.8, platelet count 230,000. Sodium 134, potassium 4.4, chloride 91, bicarbonate 36, BUN 31, creatinine 1.1, phosphorus 3.2, magnesium 2.1. IMPRESSION: An 82-year-old with 1. Left lower lobe pneumonia. 2. Chronic obstructive pulmonary disease exacerbation. 3. Acute hypoxemic and acute hypercapnic respiratory failure. 4. Delirium. RECOMMENDATIONS: 1. Continue bronchial hygiene. 2. Continue current antibiotics. 3. Cycle BiPAP. 4. Continue ice chips and Clinimix until he is strong enough to take p.o. intake. 5. Do not resuscitate level 1/allow natural if he does not improve. cc: MD Malik Bae MD
[2018-07-01] MEDS: CLINIMIX E 4.25%-5% SOLUTION 1,000 ML IV SCH ×2 (01:15→14:43)
[2018-07-01] MEDS: ZOSYN 3.375 GM in NS 50 ML IV SCH ×5 (01:15→23:08)
[2018-07-01] MEDS: ZYVOX 600 MG/D5W 600 MG/300 ML IVPB IV SCH ×3 (01:16→23:09)
[2018-07-01] MEDS: ATIVAN IV PRN ×2 (01:27→22:01)
[2018-07-01] MEDS: DUONEB (A & A) INH SCH ×6 (03:55→23:55)
[2018-07-01 05:10] LABS: ALLEN TEST YES; BE 7.8 mmoll (-3.0-3.0); BLOOD TYPE ARTERIAL; O2(CT) 25.1 mL/dL (15.0-23.0); O2HB 96.7 % (95.0-99.0); PCO2(98.6) 50 mmHg (35-45); PO2(98.6) 107 mmHg (60-100); SAMPLE BLOOD; SAO2 99.2 % (95.0-100.0); THB 18.4 g/dL (11.5-17.4); pH(98.6) 7.44 (7.35-7.45)
[2018-07-01 05:12] LABS: MODALITY BI PAP
[2018-07-01 05:16] LABS: BASO# 0.03 X1000 (0.0-0.2); BASO% 0.3 % (0.0-0.8); EOS# 0.21 X1000 (0.0-0.7); EOS% 1.8 % (0.0-10.0); HEMATOCRIT 42.3 % (42.0-52.0); HEMOGLOBIN 14.5 g/dL (14.0-18.0); IMM GRAN# 0.06 X1000 (0.0-0.04); IMM GRAN% 0.5 % (0.0-0.5); LYMPH# 1.46 X1000 (1.2-3.4); LYMPH% 12.8 % (20.5-51.1); MCH 30.5 PG (27-31); MCHC 34.3 g/dL (33-37); MCV 89.1 FL (81-99); MONO# 0.93 X1000 (0.11-0.59); MONO% 8.1 % (1.7-9.3); NEUT# 8.73 X1000 (1.4-6.5); NEUT% 76.5 % (42.2-75.2); PLT 204 X1000 (130-400); RBC 4.75 XMIL (4.7-6.1); RDW 14.5 % (11.5-14.5); WBC 11.42 X1000 (4.8-10.8)
[2018-07-01 05:20] LABS: AGAP 9; BUN 35 mg/dL (8-22); CALCIUM 8.8 mg/dL (8.8-10.2); CHLORIDE 93 mmol/L (98-107); COSMO 274; DIGOXIN 0.7 ng/mL (0.9-2.0); ESTIMATED GFR > 60; GLUCOSE 124 mg/dL (70-104); POTASSIUM 4.5 mmol/L (3.5-5.1); SODIUM 132 mmol/L (136-145); TCO2 30 mmol/L (25-35)
--- NOTE | 2018-07-01 07:06 | Diag Imaging Result Doc PS360 ---
EXAM: CHEST-PORTABLE 07/01/2018 HISTORY: respiratory failure TECHNIQUE: AP portable at 0545 COMMENT: There is retrograde opacification in the left base with obscuration of the hemidiaphragm. This was also present on 06/30/2018. The inspiration is slightly better. IMPRESSION: Left lower lobe atelectasis and/or pneumonia. Electronically signed by Balaji Ashley 07/01/2018 7:03 AM
[2018-07-01] MEDS: BREO ELLIPTA 200/25 MCG INH INH SCH (08:31)
[2018-07-01] MEDS: LASIX IV SCH (08:58)
[2018-07-01] MEDS: LANOXIN IV SCH (08:58)
[2018-07-01] MEDS: LOVENOX SUBQ SCH (08:59)
[2018-07-01] MEDS: PEPCID IV SCH ×2 (08:59→21:12)
[2018-07-01] MEDS: LEVAQUIN 500 MG/D5W 500 MG/100 ML IVPB IV SCH (19:27)
--- NOTE | 2018-07-01 19:58 | PROGRESS NOTE ---
DATE: 07/01/2018 VITAL SIGNS: Temperature 97.3 degrees, heart rate 107, respirations 12, blood pressure 110/64, O2 saturation on 28% mask 95%. Chest x-ray this morning reveals opacification of the left base with obscuration of the hemidiaphragm. Inspiration is slightly better. Impression is left lower lobe atelectasis or pneumonia. LABORATORY: Hemoglobin 14.5, hematocrit 42.3, white blood count 11,400 with 76.5 neutrophils. Sodium 132, potassium 4.5, BUN 35, creatinine 1.0, glucose 124. He is alert and speaking some. There has been no p.o. intake. I and O is 2750/1850. Lungs reveal scattered rhonchi with decreased breath sounds at the left base. Abdomen is soft. There is no ankle edema. He is NPO except for ice chips. He is on Lasix, nicotine patches, IV Levaquin and Zosyn, also linezolid 600 mg IV q.12 hours. PLAN: Continue supportive care. Physical therapy is assisting with range of motion exercises. cc: MD Malik Lua MD
[2018-07-02] MEDS: ATIVAN IV PRN ×3 (01:51→22:11)
[2018-07-02] MEDS: DUONEB (A & A) INH SCH ×6 (03:40→23:55)
[2018-07-02] MEDS: CLINIMIX E 4.25%-5% SOLUTION 1,000 ML IV SCH ×2 (04:18→16:30)
--- NOTE | 2018-07-02 04:39 | PULMONOLOGY PROGRESS NOTE ---
DATE: 07/01/2018 SUBJECTIVE: The patient is arousable. He has difficulty engaging in conversation. He appears weak. He has an audibly wet cough. He has no increased work of breathing. OBJECTIVE: Blood pressure 110/64, heart rate 105, respiratory rate 16, oxygen saturation 95% on face mask. He has been afebrile for the last 24 hours.HEENT: Pupils are equal. Oropharynx appears dry. Neck: Supple. Chest: Reveals rhonchi bilaterally with decreased breath sounds in the left lung base. Cardiac: S1, S2. Abdomen: Soft. Extremities: Without edema. LABORATORIES: Chest x-ray continues to reveal consolidation of the left lung base. No new microbiology data. White blood count 11.42, hemoglobin 14.4, platelet count 204,000. IMPRESSION: 1. An 82-year-old with left lower lobe pneumonia. 2. Chronic obstructive pulmonary disease exacerbation. 3. Delirium. 4. Acute hypoxemic and acute hypercapnic respiratory failure. DISCUSSION: An 82-year-old with problems outlined above. He has had no significant improvement over the last 2 to 3 days. RECOMMENDATIONS: 1. Continue bronchial hygiene. 2. Continue antibiotics. 3. Cycle BiPAP. 4. Continue Clinimix pending improvement. Consider NG tube and tube feeds. 5. ALLOW NATURAL /DO NOT RESUSCITATE, level 1. Prognosis does not appear to be good for this patient. cc: MD Malik Bae MD
[2018-07-02] MEDS: ZOSYN 3.375 GM in NS 50 ML IV SCH ×4 (06:08→23:33)
--- NOTE | 2018-07-02 07:03 | Diag Imaging Result Doc PS360 ---
EXAM: CHEST-PORTABLE 07/02/2018 HISTORY: respiratory failure TECHNIQUE: AP portable at 0556 COMMENT: There is improvement in the opacity in the retrocardiac portion of the left lower lobe compared to 07/01/2018. Otherwise are has been no significant change. IMPRESSION: Improving atelectasis and/or pneumonia left lower lobe. Electronically signed by Balaji Ashley 07/02/2018 7:01 AM
--- NOTE | 2018-07-02 07:33 | CARDIOLOGY PROGRESS NOTE ---
DATE: 07/01/2018 SUBJECTIVE: Mr. Gudino responds to physical and verbal stimuli. I could not get him to reliably follow commands. He utters unintelligible noises. OBJECTIVE: Vital Signs: He is afebrile. His heart rates seem to be in the 90s to 110s. His blood pressure is 120/80. General: He is in no acute distress. Cardiovascular: He sounds to be in a regular rate and rhythm. He has no murmurs. He appears to be in sinus. He has no lower extremity edema. Chest: Coarse breath sounds bilaterally. No increased work of breathing. Abdomen: Soft, nontender. PERTINENT LABORATORY DATA: His white count is 11.4, hematocrit is 42, his platelet count is 204,000. His sodium is 132, potassium 4.5, BUN 35, creatinine is 1. Digoxin level is 0.7. ASSESSMENT: The patient presents with bouts of supraventricular tachycardia versus atrial fibrillation in the setting of a pneumonia. PLAN: He currently is on digoxin. He seems to be in a sinus rhythm presently. I have no acute recommendations from a cardiovascular standpoint. He had an echocardiogram performed on 06/22/2018 demonstrating a preserved ejection fraction. cc: MD Malik Alcala MD
[2018-07-02] MEDS: BREO ELLIPTA 200/25 MCG INH INH SCH (08:15)
[2018-07-02 08:46] LABS: AGAP 10; ALB/GLOB RATIO 0.7; ALBUMIN 2.2 g/dL (3.5-5.0); ALKALINE PHOSPHATASE 39 U/L (32-122); BUN 33 mg/dL (8-22); CALCIUM 8.4 mg/dL (8.8-10.2); CHLORIDE 92 mmol/L (98-107); COSMO 265; ESTIMATED GFR > 60; GLUCOSE 111 mg/dL (70-104); GOT 29 U/L (10-34); GPT 15 U/L (10-44); MAGNESIUM 2.1 mg/dL (1.5-2.7); POTASSIUM 4.2 mmol/L (3.5-5.1); SODIUM 128 mmol/L (136-145); TCO2 26 mmol/L (25-35); TOTAL BILIRUBIN 0.69 mg/dL (0.20-1.00); TOTAL PROTEIN 5.2 g/dL (6.3-8.3)
[2018-07-02] MEDS: LANOXIN IV SCH (09:05)
[2018-07-02] MEDS: LASIX IV SCH (09:05)
[2018-07-02] MEDS: PEPCID IV SCH ×2 (09:05→20:33)
[2018-07-02] MEDS: LOVENOX SUBQ SCH (09:05)
[2018-07-02 09:40] LABS: INR 0.97; PROTIME 13.6 Seconds (11.0-16.0)
--- NOTE | 2018-07-02 10:38 | PROGRESS NOTE ---
DATE: 07/02/2018 VITAL SIGNS: Temperature 97.2 degrees, heart rate 96, respirations 12, blood pressure 116/77, O2 saturation on 6 L by mask 99%. IMAGING STUDIES: Chest x-ray shows improvement in left lower lobe pneumonia. SUBJECTIVE: There has been difficulty in maintaining an IV. Antibiotics include linezolid Zosyn, and Levaquin. Blood cultures on 06/22 revealed no growth after 5 days. PLAN: PICC line consult, recheck lab tomorrow morning. cc: MD Malik Lua MD
[2018-07-02] MEDS ORDERED: NS 250 ML ONE (11:51)
[2018-07-02] MEDS: ZYVOX 600 MG/D5W 600 MG/300 ML IVPB IV SCH ×2 (11:52→23:33)
--- NOTE | 2018-07-02 13:47 | Diag Imaging Result Doc PS360 ---
EXAM: CHEST-PORTABLE 07/02/2018 HISTORY: PICC line placement TECHNIQUE: AP portable upright at 1333 COMMENT: There is atelectasis versus pneumonia in the left lower lobe. There is a left-sided PICC line with its tip just above the right atrium. There is a probable left pleural effusion. The inspiration is less optimal than on 07/02/2018 at 0556, but otherwise are has been no significant change. IMPRESSION: Atelectasis versus pneumonia left lower lobe. Electronically signed by Balaji Ashley 07/02/2018 1:45 PM
--- NOTE | 2018-07-02 15:52 | PULMONOLOGY PROGRESS NOTE ---
DATE: 07/02/2018 SUBJECTIVE: The patient is awake, alert. He appears to be more oriented today. He continues to have a slightly wet cough, but no increased work of breathing. OBJECTIVE: Vital Signs: The patient has been afebrile for the last 24 hours. Blood pressure 120/55, heart rate 93, respiratory rate 10, oxygen saturation 97%. HEENT: Pupils are equal and reactive. Oropharynx appears clear. Neck: Supple. Chest: Reveals occasional rhonchi bilaterally with crackles at the left base. Cardiac: S1, S2. Abdomen: Soft. Extremities: Reveal trace edema. LABORATORY: Sodium 128, potassium 4.2, chloride 92, bicarbonate 26, BUN 33, creatinine 1.0. Chest x-ray reveals slight improvement at the left base. IMPRESSIONS: An 82-year-old with: 1. Chronic obstructive pulmonary disease exacerbation. 2. Left lower lobe pneumonia. 3. Acute hypoxemic and hypercapnic respiratory failure. 4. Delirium with marginal improvement. PLAN: 1. Continue bronchial hygiene. 2. Continue current antibiotics. 3. Cycle BiPAP. 4. Continue Clinimix today. The patient's diet has been advanced and if he is tolerating p.o., I will discontinue Clinimix. 5. End of life discussions have been held and wishes have been documented. cc: MD Malik Bae MD
[2018-07-02] MEDS ORDERED: TYLENOL PO PRN (16:03)
[2018-07-02] MEDS: LEVAQUIN 500 MG/D5W 500 MG/100 ML IVPB IV SCH (20:33)
[2018-07-03] MEDS: DUONEB (A & A) INH SCH ×5 (03:45→19:58)
[2018-07-03] MEDS: ATIVAN IV PRN (04:37)
[2018-07-03] MEDS: ZOSYN 3.375 GM in NS 50 ML IV SCH ×4 (05:07→23:58)
[2018-07-03 05:23] LABS: BASO# 0.02 X1000 (0.0-0.2); BASO% 0.2 % (0.0-0.8); EOS# 0.15 X1000 (0.0-0.7); EOS% 1.6 % (0.0-10.0); HEMATOCRIT 40.5 % (42.0-52.0); HEMOGLOBIN 13.7 g/dL (14.0-18.0); IMM GRAN# 0.02 X1000 (0.0-0.04); IMM GRAN% 0.2 % (0.0-0.5); LYMPH# 1.45 X1000 (1.2-3.4); LYMPH% 15.5 % (20.5-51.1); MCHC 33.8 g/dL (33-37); MCV 88.6 FL (81-99); MONO# 0.93 X1000 (0.11-0.59); MONO% 9.9 % (1.7-9.3); MPV 9.3 FL (7.4-10.4); NEUT% 72.6 % (42.2-75.2); PLT 171 X1000 (130-400); RBC 4.57 XMIL (4.7-6.1); WBC 9.37 X1000 (4.8-10.8)
[2018-07-03 05:54] LABS: AGAP 8; BUN 35 mg/dL (8-22); CALCIUM 8.7 mg/dL (8.8-10.2); CHLORIDE 91 mmol/L (98-107); COSMO 271; ESTIMATED GFR > 60; GLUCOSE 113 mg/dL (70-104); POTASSIUM 3.6 mmol/L (3.5-5.1); SODIUM 131 mmol/L (136-145); TCO2 32 mmol/L (25-35)
--- NOTE | 2018-07-03 07:06 | Diag Imaging Result Doc PS360 ---
EXAM: CHEST-PORTABLE HISTORY: respiratory failure TECHNIQUE: Portable chest single view COMPARISON: 07/02/2018 FINDINGS: The lungs are well expanded except for left basilar atelectasis and/or infiltrates. No change in the left-sided PICC line. The heart is mildly prominent. The right lung remains clear. IMPRESSION: Stable chest. Electronically signed by Nixon Hernandez 07/03/2018 7:04 AM
[2018-07-03] MEDS: CLINIMIX E 4.25%-5% SOLUTION 1,000 ML IV SCH ×2 (07:17→20:39)
[2018-07-03] MEDS: BREO ELLIPTA 200/25 MCG INH INH SCH (08:00)
[2018-07-03] MEDS: LASIX IV SCH (08:24)
[2018-07-03] MEDS: PEPCID IV SCH ×2 (08:25→20:48)
[2018-07-03] MEDS: LANOXIN IV SCH (08:25)
[2018-07-03] MEDS: LOVENOX SUBQ SCH (08:26)
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
[2018-07-03] MEDS: ZYVOX 600 MG/D5W 600 MG/300 ML IVPB IV SCH ×2 (12:17→23:58)
[2018-07-03] MEDS: LEVAQUIN 500 MG/D5W 500 MG/100 ML IVPB IV SCH (19:38)
--- NOTE | 2018-07-03 20:34 | PULMONOLOGY PROGRESS NOTE ---
DATE: 07/03/2018 SUBJECTIVE: The patient is more awake and alert today. He continues to mumble responses to questions. OBJECTIVE: Vital Signs: The patient has been afebrile for the last 24 hours. Blood pressure 105/51, heart rate 99, respiratory rate 18, oxygen saturation 96% on 2 L nasal cannula. HEENT: Pupils are equal and reactive. Oropharynx appears clear. Neck: Supple. Chest: Reveals occasional rhonchi bilaterally. Cardiac exam: S1-S2. Abdomen: Is soft. Extremities: Without edema. LABORATORIES: Persistent changes at the left base are noted. White blood count 9.37, hemoglobin 13.7, platelet count 171,000. Sodium 131, potassium 3.6, chloride 91, bicarbonate 32, BUN 35, creatinine 1.0. IMPRESSION: An 82-year-old with 1. Left lower lobe pneumonia. 2. Chronic obstructive pulmonary disease with exacerbation. 3. Acute hypoxemic and hypercapnic respiratory failure. 4. Ongoing delirium. PLAN: 1. Continue antibiotics. 2. Continue bronchial hygiene. 3. Continue Clinimix until oral intake improves. cc: MD Malik Bae MD
[2018-07-04] MEDS: DUONEB (A & A) INH SCH ×6 (03:50→19:40)
[2018-07-04 05:27] LABS: BASO# 0.02 X1000 (0.0-0.2); BASO% 0.3 % (0.0-0.8); EOS# 0.12 X1000 (0.0-0.7); EOS% 1.7 % (0.0-10.0); HEMATOCRIT 36.7 % (42.0-52.0); HEMOGLOBIN 12.3 g/dL (14.0-18.0); LYMPH# 1.06 X1000 (1.2-3.4); MCH 29.5 PG (27-31); MCHC 33.5 g/dL (33-37); MONO# 0.71 X1000 (0.11-0.59); MONO% 10.1 % (1.7-9.3); MPV 9.6 FL (7.4-10.4); NEUT# 5.15 X1000 (1.4-6.5); NEUT% 72.9 % (42.2-75.2); PLT 140 X1000 (130-400); RBC 4.17 XMIL (4.7-6.1); RDW 13.8 % (11.5-14.5); WBC 7.06 X1000 (4.8-10.8)
[2018-07-04 05:44] LABS: ESTIMATED GFR > 60
[2018-07-04 05:46] LABS: AGAP 9; BUN 34 mg/dL (8-22); CALCIUM 8.2 mg/dL (8.8-10.2); CHLORIDE 89 mmol/L (98-107); COSMO 268; CREATININE 0.9 mg/dL (0.7-1.2); GLUCOSE 119 mg/dL (70-104); POTASSIUM 3.8 mmol/L (3.5-5.1); SODIUM 129 mmol/L (136-145); TCO2 31 mmol/L (25-35)
[2018-07-04] MEDS: ZOSYN 3.375 GM in NS 50 ML IV SCH ×4 (06:51→23:26)
--- NOTE | 2018-07-04 06:55 | Diag Imaging Result Doc PS360 ---
CHEST-PORTABLE - 07/04/2018 INDICATION: respiratory failure COMPARISON: 07/03/2018 FINDINGS: Stable left PICC line. Stable left basilar airspace opacification consistent with a small pleural effusion. No new infiltrates. Heart size remains top normal. IMPRESSION: Small left pleural effusion. No change from prior. Electronically signed by Manuel Mccoy 07/04/2018 6:52 AM
[2018-07-04] MEDS: BREO ELLIPTA 200/25 MCG INH INH SCH (07:50)
[2018-07-04] MEDS: LANOXIN IV SCH (08:04)
[2018-07-04] MEDS: PEPCID IV SCH ×2 (08:05→20:25)
[2018-07-04] MEDS: LOVENOX SUBQ SCH (08:05)
[2018-07-04] MEDS: LASIX IV SCH (08:05)
[2018-07-04] MEDS: CLINIMIX E 4.25%-5% SOLUTION 1,000 ML IV SCH ×3 (10:54→21:44)
[2018-07-04] MEDS: ZYVOX 600 MG/D5W 600 MG/300 ML IVPB IV SCH ×2 (11:05→23:26)
[2018-07-04] MEDS ORDERED: LANOXIN IV ONE ×2 (12:05→12:08)
[2018-07-04] MEDS: ATIVAN IV PRN ×2 (12:38→18:30)
--- NOTE | 2018-07-04 14:36 | EKG Report ---
Test Performed on : 07/04/2018 11:57:36 AM Test Reason : CCU. NO order in [place] Blood Pressure : / mmHG Vent. Rate : 129 BPM Atrial Rate : 129 BPM P-R Int : 000 ms QRS Dur : 086 ms QT Int : 322 ms P-R-T Axes : 000 -47 -12 degrees QTc Int : 471 ms Atrial fibrillation. with rapid ventricular response. with premature ventricular or aberrantly conduc tricia complexes. Left anterior fascicular block Cannot rule out Inferior infarct (cited on or before 24-JUN-2018) Anteroseptal infarct (cited on or before 24-JUN-2018) Abnormal ECG When compared with ECG of 04-JUL-2018 11:56, (Unconfirmed) No significant change was found Confirmed by Brian SHAH, Woody Goodson ([id number]) on 07/04/2018 3:01:59 PM
[2018-07-04] MEDS ORDERED: LOPRESSOR IV PRN (16:58)
[2018-07-04] MEDS ORDERED: LEVOPHED 8 MG in D5 1/2 NS 250 ML IV SCH (17:15)
[2018-07-04 17:45] LABS: URINE SOURCE CATH
[2018-07-04 17:51] LABS: BILIRUBIN URINE NEGATIVE (NEGATIVE); BLOOD URINE MODERATE (NEGATIVE); COLOR YELLOW; GLUCOSE URINE NEGATIVE (NEGATIVE); KETONE URINE NEGATIVE (NEGATIVE); LEUKOCYTES URINE LARGE (NEGATIVE); NITRITE URINE NEGATIVE (NEGATIVE); PROTEIN URINE TRACE mg/dL (NEGATIVE); SP GRAVITY URINE 1.015; TURBIDITY URINE CLEAR (CLEAR); UROBILINOGEN URINE NORMAL (NORMAL)
[2018-07-04 17:59] LABS: UR EPITHELIAL CELLS <10 /HPF (<10); URINE BACTERIA NEGATIVE /HPF; URINE RBC TNTC /HPF (<10); URINE WBC 20-40 /HPF (<10)
[2018-07-04 18:03] LABS: URINE CASTS GRANULAR PRESENT; URINE CRYSTALS NONE SEEN; URINE SMALL ROUND CELLS NONE SEEN; URINE YEAST NONE SEEN
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
[2018-07-04] MEDS: LEVAQUIN 500 MG/D5W 500 MG/100 ML IVPB IV SCH (20:25)
--- NOTE | 2018-07-04 21:08 | CARDIOLOGY PROGRESS NOTE ---
DATE: 07/04/2018 SUBJECTIVE: Mr. Gudino continues to be confused. He is not following commands. He localizes to the examiner. PHYSICAL: He is afebrile. His heart rate has been noted to be in the 90s to 120s. Blood pressure 81/54. It appears that around 10:30 this morning he had a drop. Previously he was in the 100s to 130s and after that he is in the 70s to 80s predominantly.General: He is in no acute distress. Cardiovascular: He is in an irregularly irregular rate and rhythm. He is slightly tachycardic in the low 100s. His telemetry and recent EKGs would suggest atrial fibrillation. He has trace to 1+ bilateral lower extremity edema. Chest: Has coarse breath sounds diffusely. No increased work of breathing. Abdomen: Soft, nontender. PERTINENT DATA: Lab data. White count is 7, hematocrit is 36, platelet count is 140,000. His sodium is 129, his potassium is 3.8, his BUN is 34, creatinine 0.9. ASSESSMENT: Mr. Gudino is an 82-year-old gentleman who has had issues with pneumonia. His hospitalization has been complicated by bouts of supraventricular arrhythmias. PLAN: Earlier in the hospitalization he seemed to have multifocal atrial tachycardia. More recently, his EKGs are suggestive of atrial fibrillation. He appears to be having issues with hypotension. His chest x-ray today showed stable left basilar airspace opacification consistent with a small pleural effusion. He has been treated for a pneumonia. His laboratory data and is relatively unremarkable with the exception of a trend down in his sodium. His O2 requirement does not seem to be significantly worse. He seemed to have a significant change in his hemodynamics around 10:30 this morning where his blood pressure dropped to consistently below 100 systolic. I am unclear of the exact etiology of this. His blood cultures thus far have been unremarkable. He continues to be somewhat confused. I would recommend re-culturing the patient, checking a urinalysis as well. I will adjust his medications to add in a low dose of Lopressor 2.5 IV q.4 p.r.n. heart rates above 120. In addition, I will add in a low dose of Levophed to support his blood pressure if he continues to be hypotensive. cc: MD Malik Alcala MD
[2018-07-05] MEDS: DUONEB (A & A) INH SCH ×7 (00:05→23:50)
--- NOTE | 2018-07-05 01:32 | PULMONOLOGY PROGRESS NOTE ---
DATE: 07/04/2018 SUBJECTIVE: The patient is awake, alert and conversant. He does mumble, making some of his speech incoherent. OBJECTIVE: The patient has been afebrile for the last 24 hours. He has had periods of tachycardia and is now getting digoxin and p.r.n. metoprolol through Cardiology. Blood pressure 108/69, heart rate 117, respiratory rate 15, oxygen saturation 91% on 2 L per nasal cannula. HEENT: Pupils are equal and reactive. Oropharynx appears clear. Neck is supple. Chest reveals occasional rhonchi bilaterally that do not clear with cough. Cardiac exam: Increased rate, irregular rhythm. Abdomen is soft. Positive bowel sounds. Extremities reveal trace edema. DIAGNOSTIC DATA: Chest x-ray reveals persistent left basilar infiltrate with small effusion. LABORATORY DATA: White blood count 7.0, hemoglobin 12.3, platelet count 140,000. Sodium 129, potassium 3.8, chloride 31, BUN 34, creatinine 0.9. Microbiology reveals no new data. IMPRESSION: An 82-year-old with: 1. Chronic obstructive pulmonary disease. 2. Left lower lobe pneumonia. 3. Delirium requiring p.r.n. sedation. 4. Hypoxemic respiratory failure. 5. Failure to thrive. RECOMMENDATIONS: 1. Continue antibiotics. 2. Continue bronchial hygiene. 3. Continue Clinimix until p.o. intake improves. 4. The patient remains marginal. End-of-life discussions have been addressed. cc: MD Malik Bae MD
[2018-07-05] MEDS: ATIVAN IV PRN ×2 (02:03→22:16)
[2018-07-05 04:36] LABS: BASO# 0.01 X1000 (0.0-0.2); BASO% 0.1 % (0.0-0.8); EOS# 0.04 X1000 (0.0-0.7); EOS% 0.6 % (0.0-10.0); HEMATOCRIT 36.2 % (42.0-52.0); HEMOGLOBIN 12.2 g/dL (14.0-18.0); IMM GRAN# 0.02 X1000 (0.0-0.04); IMM GRAN% 0.3 % (0.0-0.5); LYMPH# 1.08 X1000 (1.2-3.4); MCH 29.3 PG (27-31); MCHC 33.7 g/dL (33-37); MCV 86.8 FL (81-99); MONO# 0.85 X1000 (0.11-0.59); MONO% 11.8 % (1.7-9.3); NEUT# 5.18 X1000 (1.4-6.5); NEUT% 72.2 % (42.2-75.2); PLT 129 X1000 (130-400); RBC 4.17 XMIL (4.7-6.1); RDW 13.7 % (11.5-14.5); WBC 7.18 X1000 (4.8-10.8)
[2018-07-05 05:00] LABS: ESTIMATED GFR > 60
[2018-07-05] MEDS: ZOSYN 3.375 GM in NS 50 ML IV SCH ×3 (05:01→17:40)
[2018-07-05 05:03] LABS: AGAP 8; BUN 38 mg/dL (8-22); CALCIUM 8.5 mg/dL (8.8-10.2); CHLORIDE 87 mmol/L (98-107); COSMO 263; GLUCOSE 111 mg/dL (70-104); POTASSIUM 3.9 mmol/L (3.5-5.1); SODIUM 126 mmol/L (136-145); TCO2 31 mmol/L (25-35)
--- NOTE | 2018-07-05 07:23 | Diag Imaging Result Doc PS360 ---
EXAM: CHEST-PORTABLE INDICATION: respiratory failure TECHNIQUE: One view COMPARISON: 07/04/2018 FINDINGS: The left PICC line is in stable position. The small left pleural effusion with adjacent atelectasis and/or infiltrate at the base appears to have decreased somewhat. No new consolidation is identified. Cardiac silhouette is stable. IMPRESSION: Interval improvement of the left lung base. Electronically signed by Hermes Smith 07/05/2018 7:21 AM
[2018-07-05] MEDS: BREO ELLIPTA 200/25 MCG INH INH SCH (08:20)
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
[2018-07-05] MEDS: LASIX IV SCH (09:29)
[2018-07-05] MEDS: LANOXIN IV SCH (09:29)
[2018-07-05] MEDS: PEPCID IV SCH ×2 (09:29→22:17)
[2018-07-05] MEDS: LOVENOX SUBQ SCH (09:30)
[2018-07-05 10:07] LABS: ALLEN TEST YES; BE 8.1 mmoll (-3.0-3.0); BLOOD TYPE ARTERIAL; HCO3-(ACT) 31.2 mmoll (20.0-26.0); METHB 1.1 % (0.0-1.5); O2(CT) 16.1 mL/dL (15.0-23.0); O2HB 94.9 % (95.0-99.0); PCO2(98.6) 41 mmHg (35-45); PO2(98.6) 73 mmHg (60-100); SAMPLE BLOOD; SAO2 97.5 % (95.0-100.0)
[2018-07-05 10:09] LABS: MODALITY CANNULA
--- NOTE | 2018-07-05 10:41 | EKG Report ---
Test Performed on : 07/04/2018 3:20:25 PM Test Reason : AFIB Blood Pressure : / mmHG Vent. Rate : 120 BPM Atrial Rate : 120 BPM P-R Int : 272 ms QRS Dur : 086 ms QT Int : 320 ms P-R-T Axes : 000 -47 001 degrees QTc Int : 452 ms Sinus tachycardia. with 1st degree AV block. with frequent premature ventricular complexes. Left anterior fascicular block Cannot rule out Inferior infarct (cited on or before 24-JUN-2018) Anterior infarct (cited on or before 24-JUN-2018) Abnormal ECG When compared with ECG of 04-JUL-2018 11:57, Sinus rhythm. has replaced Atrial fibrillation. Confirmed by Brian SHAH, Woody Goodson ([id number]) on 07/06/2018 11:37:13 AM
[2018-07-05] MEDS: CLINIMIX E 4.25%-5% SOLUTION 1,000 ML IV SCH (11:44)
[2018-07-05] MEDS: ZYVOX 600 MG/D5W 600 MG/300 ML IVPB IV SCH (11:44)
[2018-07-05] MEDS: LEVAQUIN 500 MG/D5W 500 MG/100 ML IVPB IV SCH (19:51)
[2018-07-05] MEDS: SODIUM CHLORIDE 0.9% INJ SCH (22:16)
[2018-07-06] MEDS: CLINIMIX E 4.25%-5% SOLUTION 1,000 ML IV SCH ×2 (00:40→15:00)
[2018-07-06] MEDS: ZOSYN 3.375 GM in NS 50 ML IV SCH ×5 (00:40→23:19)
[2018-07-06] MEDS: ZYVOX 600 MG/D5W 600 MG/300 ML IVPB IV SCH ×3 (00:40→23:19)
--- NOTE | 2018-07-06 02:07 | PULMONOLOGY PROGRESS NOTE ---
DATE: 07/05/2018 SUBJECTIVE: The patient is awake and alert. He has no increased work of breathing. He did have some increased confusion yesterday. He attempts to communicate but only mumbles. OBJECTIVE: Vital Signs: The patient has been afebrile for the last 24 hours. He has been initiated on Levophed for hypotension. Blood pressure 90/66, heart rate 83, respiratory rate 20, oxygen saturation 100%. HEENT: Pupils are equal and reactive. Oropharynx appears clear. Neck: Supple. Chest: Reveals bibasilar crackles. Cardiac: S1, S2. Abdomen: Soft. Extremities: Reveal trace edema. LABORATORIES: Urine culture is pending. Blood cultures are pending. Chest x-ray reveals mild improvement at the left base. White blood count 7.18, hemoglobin 12.2, platelet count 129,000. Sodium 126, potassium 3.9, chloride 87, bicarbonate 31, BUN 38, creatinine 1.0. Arterial blood gas pH 7.50, pCO2 of 41, PO2 of 73 on 2 L per nasal cannula. IMPRESSION: An 82-year-old with 1. Chronic obstructive pulmonary disease. 2. Slowly resolving left lower lobe pneumonia. 3. Hypoxemic respiratory failure. 4. Delirium. 5. Hypotension with urinary tract infection. 6. Protein calorie malnutrition. 7. Failure to thrive. RECOMMENDATIONS: 1. Continue antibiotics. 2. Continue bronchial hygiene. 3. Continue Clinimix pending improvement in oral intake. 4. The patient remains marginal. Despite 13 days of hospitalization, his improvement has been minimal and he continues to have difficulty with delirium, which is a poor prognostic indicator. cc: MD Malik Bae MD
[2018-07-06] MEDS: DUONEB (A & A) INH SCH ×6 (03:40→23:37)
--- NOTE | 2018-07-06 06:48 | Diag Imaging Result Doc PS360 ---
CHEST-PORTABLE - 07/06/2018 INDICATION: respiratory failure COMPARISON: 07/05/2018 FINDINGS: Stable left PICC line. Stable cardiomegaly and pulmonary vascular congestion. Stable partial opacification of the left lung base, indeterminate. No new infiltrates. IMPRESSION: No change from prior. Electronically signed by Manuel Mccoy 07/06/2018 6:46 AM
[2018-07-06 06:55] LABS: ESTIMATED GFR > 60
[2018-07-06 06:58] LABS: AGAP 6; BUN 35 mg/dL (8-22); CALCIUM 7.9 mg/dL (8.8-10.2); CHLORIDE 86 mmol/L (98-107); COSMO 258; CREATININE 0.9 mg/dL (0.7-1.2); GLUCOSE 101 mg/dL (70-104); POTASSIUM 3.6 mmol/L (3.5-5.1); SODIUM 124 mmol/L (136-145); TCO2 32 mmol/L (25-35)
[2018-07-06 07:58] LABS: BASO# 0.03 X1000 (0.0-0.2); BASO% 0.4 % (0.0-0.8); EOS# 0.13 X1000 (0.0-0.7); EOS% 1.8 % (0.0-10.0); HEMOGLOBIN 11.5 g/dL (14.0-18.0); IMM GRAN# 0.02 X1000 (0.0-0.04); IMM GRAN% 0.3 % (0.0-0.5); LYMPH# 1.19 X1000 (1.2-3.4); LYMPH% 16.6 % (20.5-51.1); MCH 29.5 PG (27-31); MCHC 33.8 g/dL (33-37); MCV 87.2 FL (81-99); MONO# 0.54 X1000 (0.11-0.59); MONO% 7.5 % (1.7-9.3); MPV 9.1 FL (7.4-10.4); NEUT# 5.25 X1000 (1.4-6.5); NEUT% 73.4 % (42.2-75.2); PLT 99 X1000 (130-400); RDW 13.6 % (11.5-14.5); WBC 7.16 X1000 (4.8-10.8)
[2018-07-06] MEDS: BREO ELLIPTA 200/25 MCG INH INH SCH (08:36)
[2018-07-06] MEDS: LANOXIN IV SCH (09:32)
[2018-07-06] MEDS: LOVENOX SUBQ SCH (09:32)
[2018-07-06] MEDS: LASIX IV SCH (09:32)
[2018-07-06] MEDS: PEPCID IV SCH ×2 (09:32→21:23)
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
[2018-07-06] MEDS: LEVAQUIN 500 MG/D5W 500 MG/100 ML IVPB IV SCH (19:36)
[2018-07-06] MEDS: SODIUM CHLORIDE 0.9% INJ SCH (21:23)
[2018-07-07] MEDS: CLINIMIX E 4.25%-5% SOLUTION 1,000 ML IV SCH (03:26)
[2018-07-07] MEDS: DUONEB (A & A) INH SCH ×6 (03:50→23:47)
--- NOTE | 2018-07-07 05:00 | PULMONOLOGY PROGRESS NOTE ---
DATE: 07/06/2018 SUBJECTIVE: The patient is more somnolent this morning. He has no increased work of breathing. OBJECTIVE: Vital Signs: He has been afebrile for the last 24 hours. Blood pressure 109/51, heart rate 93, respiratory rate 21, oxygen saturation 97% on 35% FiO2. HEENT: Pupils are equal and reactive. Oropharynx appears clear. Neck: Supple. Chest: Reveals decreased breath sounds left base. Cardiac: S1, S2. Abdomen: Soft. Extremities: Without edema. LABORATORIES: White blood count 7.16, hemoglobin 11.5, platelet count 99,000. Sodium 124, potassium 3.6, chloride 86, BUN 35, creatinine 0.9. Chest x-ray reveals no change in the left base. IMPRESSION: 1. An 82-year-old with chronic obstructive pulmonary disease. 2. Left lower lobe pneumonia. 3. Ongoing delirium. 4. Hypoxemic respiratory failure. 5. Urinary tract infection. 6. Protein calorie malnutrition. RECOMMENDATION: 1. Continue antibiotics. 2. Continue bronchial hygiene. 3. Continue Clinimix. He continues to have inadequate p.o. intake. NG could be considered for feeding, but he would likely pull it out. 4. This is patient's hospital day #14. He continues to have delirium without improvement, making his prognosis guarded to poor. cc: MD Malik Bae MD
[2018-07-07] MEDS: ZOSYN 3.375 GM in NS 50 ML IV SCH ×4 (05:10→23:24)
--- NOTE | 2018-07-07 06:48 | Diag Imaging Result Doc PS360 ---
CHEST-PORTABLE - 07/07/2018 INDICATION: respiratory failure COMPARISON: 07/06/2018 FINDINGS: Stable left PICC line. Stable patchy bibasilar infiltrates. Heart size and pulmonary vascularity remains borderline enlarged. There is probably a trace left pleural effusion. IMPRESSION: No change from prior. Electronically signed by Manuel Mccoy 07/07/2018 6:46 AM
[2018-07-07] MEDS: BREO ELLIPTA 200/25 MCG INH INH SCH (07:45)
[2018-07-07] MEDS: PEPCID IV SCH ×2 (09:13→21:00)
[2018-07-07] MEDS: LANOXIN IV SCH (09:13)
[2018-07-07] MEDS: LOVENOX SUBQ SCH (09:13)
[2018-07-07] MEDS: LASIX IV SCH (09:13)
[2018-07-07] MEDS ORDERED: LASIX IV ONE (09:23)
[2018-07-07] MEDS: ZYVOX 600 MG/D5W 600 MG/300 ML IVPB IV SCH (11:38)
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
[2018-07-07] MEDS: LEVAQUIN 500 MG/D5W 500 MG/100 ML IVPB IV SCH (21:00)
[2018-07-08] MEDS: ATIVAN IV PRN (01:06)
[2018-07-08] MEDS: DUONEB (A & A) INH SCH ×7 (03:46→23:30)
[2018-07-08] MEDS: ZOSYN 3.375 GM in NS 50 ML IV SCH ×4 (05:02→23:32)
--- NOTE | 2018-07-08 07:01 | Diag Imaging Result Doc PS360 ---
EXAM: CHEST-PORTABLE HISTORY: respiratory failure TECHNIQUE: Chest single view COMPARISON: 07/07/2018 FINDINGS: No change in the left-sided PICC line. There are infiltrates in the lower lungs with small pleural effusions. The findings are slightly less pronounced on the current study. Decreased pulmonary edema. IMPRESSION: Mild interval improvement. Electronically signed by Nixon Hernandez 07/08/2018 6:58 AM
[2018-07-08] MEDS: BREO ELLIPTA 200/25 MCG INH INH SCH (07:43)
[2018-07-08 07:54] LABS: AGAP 10; BUN 34 mg/dL (8-22); CHLORIDE 90 mmol/L (98-107); GLUCOSE 107 mg/dL (70-104); POTASSIUM 3.6 mmol/L (3.5-5.1); SODIUM 129 mmol/L (136-145); TCO2 29 mmol/L (25-35)
[2018-07-08 07:55] LABS: CALCIUM 8.5 mg/dL (8.8-10.2); COSMO 267; CREATININE 0.9 mg/dL (0.7-1.2); ESTIMATED GFR > 60
[2018-07-08] MEDS: PEPCID IV SCH ×2 (08:35→20:14)
[2018-07-08] MEDS: LANOXIN IV SCH (08:35)
[2018-07-08] MEDS: LOVENOX SUBQ SCH (08:35)
[2018-07-08] MEDS: LASIX IV SCH (08:35)
[2018-07-08 08:46] LABS: BASO# 0.02 X1000 (0.0-0.2); BASO% 0.3 % (0.0-0.8); EOS# 0.15 X1000 (0.0-0.7); EOS% 2.6 % (0.0-10.0); HEMATOCRIT 33.2 % (42.0-52.0); HEMOGLOBIN 11.5 g/dL (14.0-18.0); LYMPH# 0.99 X1000 (1.2-3.4); LYMPH% 17.2 % (20.5-51.1); MCH 29.9 PG (27-31); MCHC 34.6 g/dL (33-37); MCV 86.2 FL (81-99); MONO% 5.2 % (1.7-9.3); MPV 10.3 FL (7.4-10.4); NEUT# 4.31 X1000 (1.4-6.5); NEUT% 74.7 % (42.2-75.2); PLT 76 X1000 (130-400); RBC 3.85 XMIL (4.7-6.1); RDW 13.7 % (11.5-14.5); WBC 5.77 X1000 (4.8-10.8)
[2018-07-08] MEDS: ZYVOX 600 MG/D5W 600 MG/300 ML IVPB IV SCH ×3 (12:03→23:32)
--- NOTE | 2018-07-08 20:11 | PROGRESS NOTE ---
DATE: 07/08/2018 SUBJECTIVE: An 82-year-old, white male, has been in ICU since 06/22/2018. Interval history was reviewed. As per the nurse's note, he is confused. IV Clinimix was discontinued. He is not eating well. He is a poor historian. History is not reliable. He has multiple consultations which includes Dr. Camacho and Dr. Javed Martinez. He is not in respiratory distress. He is still under restraints. PAST MEDICAL HISTORY: Reviewed. PAST SURGICAL HISTORY: Reviewed. MEDICATIONS: Reviewed. ALLERGIES: Not known. OBJECTIVE: General: On examination, elderly gentleman confused, restrained. He is tachycardic. 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 Blood pressure is 98/47. He is not in respiratory distress. HEENT: Got dry mucous membranes. Neck: Supple. Chest: Bilateral air entry. Heart: Irregular heart sounds. Abdomen: Belly is soft, obese. Extremities: No edema. He has significant hallux valgus and hammertoe deformities noted. He had a PICC line on the left side. INVESTIGATIONS: CBC: White cell count 5.7, hematocrit 33, platelets 76. Sodium 129, potassium 3.6, BUN 34, creatinine 0.9. Urine cultures are negative. Blood cultures are negative. Chest x- ray, decreased edema. PICC line on the left side, atelectasis. ASSESSMENT AND PLAN: 1. Altered mental status due to delirium and restraints as needed. 2. Acute respiratory failure on oxygenation well off on BiPAP. 3. Enteral nutrition, Ensure as directed. IV Clinimix was discontinued. 4. Hypotension off on vasopressors. 5. Intermittent atrial fibrillation and multifocal tachycardia. Lanoxin 125 IV daily and metoprolol as needed. 6. Left lower lobe pneumonia. The patient is on Zosyn, IV Zyvox and Levaquin. 7. Deep vein thrombosis prophylaxis with Lovenox. 8. GI prophylaxis with IV Pepcid. 9. Thrombocytopenia. Continue to monitor. 10. Delirium. Ativan as needed. Will discuss the about the nutritional status. He is not in a position to do the physical therapy at this time. 11. Living Will: Do Not Resuscitate 1. LEVEL OF DOCUMENTATION: 35 minutes. cc: MD Malik Curiel MD
[2018-07-08] MEDS: LEVAQUIN 500 MG/D5W 500 MG/100 ML IVPB IV SCH (20:14)
[2018-07-09] MEDS: DUONEB (A & A) INH SCH ×6 (03:20→23:44)
[2018-07-09] MEDS: ZOSYN 3.375 GM in NS 50 ML IV SCH (05:41)
--- NOTE | 2018-07-09 07:25 | Diag Imaging Result Doc PS360 ---
EXAM: CHEST-PORTABLE HISTORY: respiratory failure TECHNIQUE: Portable chest single view COMPARISON: 07/08/2018 FINDINGS: No change in the left-sided PICC line. Heart is mildly prominent and there is mild pulmonary edema. There are infiltrates in the left lung base which are slightly more prominent than on the prior study. There is a small left pleural effusion. Infiltrates in the lower right lung are similar to the prior study. IMPRESSION: Slight interval worsening. Electronically signed by Nixon Hernandez 07/09/2018 7:22 AM
[2018-07-09] MEDS: BREO ELLIPTA 200/25 MCG INH INH SCH (07:41)
[2018-07-09] MEDS: LANOXIN IV SCH (08:13)
[2018-07-09] MEDS: PEPCID IV SCH ×3 (08:13→21:47)
[2018-07-09] MEDS: LOVENOX SUBQ SCH (08:13)
[2018-07-09] MEDS: LASIX IV SCH (08:13)
[2018-07-09] MEDS ORDERED: TEARISOL OPH SOLUTION BOTH EYES PRN (08:17)
[2018-07-09] MEDS: ZYVOX 600 MG/D5W 600 MG/300 ML IVPB IV SCH (11:20)
--- NOTE | 2018-07-09 14:31 | PROGRESS NOTE ---
DATE: 07/09/2018 SUBJECTIVE: The patient is pleasantly confused. Nurses reported last night he pulled the catheter out, no obvious bleeding noted, and he is under restraints. PICC line on the left side noted. 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 He is drinking some liquids. Other than that, no complaints. PHYSICAL EXAMINATION: Temperature is 97.6, pulse is 107, blood pressure is 114/50.HEENT: Dry mucous membranes. Chest: Bilateral air entry. Irregular heart sounds. Belly is soft, nontender. Francois was placed. PICC line. Nasal cannula 2 L. LABORATORIES: None reported today. ASSESSMENT AND PLAN: 1. Delirium. Restraints as needed. Sedation as needed. 2. Acute respiratory failure. Off BiPAP, currently stable. 3. Enteral nutrition with Ensure. IV Clinimix was discontinued. 4. History of vasopressors. Off Levophed. Blood pressure is stable. 5. Intermittent atrial fibrillation and multifocal atrial tachycardia. On Lanoxin and metoprolol. 6. Left lower lobe pneumonia. On triple antibiotics. I would discontinued Zosyn. Continue on Zyvox and Levaquin. 7. Deep vein thrombosis prophylaxis with Lovenox. 8. Gastrointestinal prophylaxis with intravenous Pepcid. 9. Thrombocytopenia, stable. 10. Living will: Do Not Resuscitate. Waiting for rehabilitation placement. Continue with the present treatment. I tried to see his . Apparently, she just left this morning and I explained to the nurses continue present treatment. LEVEL OF DOCUMENTATION: 25 minutes. cc: MD Malik Curiel MD MTDD
[2018-07-09] MEDS: LEVAQUIN 500 MG/D5W 500 MG/100 ML IVPB IV SCH (19:57)
[2018-07-09] MEDS: ATIVAN IV PRN (20:14)
[2018-07-10] MEDS: ZYVOX 600 MG/D5W 600 MG/300 ML IVPB IV SCH ×2 (01:13→12:28)
[2018-07-10] MEDS: DUONEB (A & A) INH SCH ×6 (03:44→22:41)
[2018-07-10 05:15] LABS: BASO# 0.01 X1000 (0.0-0.2); BASO% 0.2 % (0.0-0.8); EOS# 0.11 X1000 (0.0-0.7); EOS% 2.7 % (0.0-10.0); HEMATOCRIT 29.5 % (42.0-52.0); LYMPH# 1.26 X1000 (1.2-3.4); LYMPH% 30.4 % (20.5-51.1); MCH 29.6 PG (27-31); MCHC 33.9 g/dL (33-37); MCV 87.3 FL (81-99); MONO# 0.24 X1000 (0.11-0.59); MONO% 5.8 % (1.7-9.3); MPV 10.2 FL (7.4-10.4); NEUT# 2.53 X1000 (1.4-6.5); NEUT% 60.9 % (42.2-75.2); PLT 48 X1000 (130-400); RBC 3.38 XMIL (4.7-6.1); RDW 13.8 % (11.5-14.5); WBC 4.15 X1000 (4.8-10.8)
[2018-07-10 05:48] LABS: AGAP 10; ALB/GLOB RATIO 0.9; ALKALINE PHOSPHATASE 40 U/L (32-122); BUN 30 mg/dL (8-22); CALCIUM 7.2 mg/dL (8.8-10.2); CHLORIDE 101 mmol/L (98-107); COSMO 281; CREATININE 0.7 mg/dL (0.7-1.2); ESTIMATED GFR > 60; GLUCOSE 91 mg/dL (70-104); GOT 21 U/L (10-34); GPT 11 U/L (10-44); POTASSIUM 2.9 mmol/L (3.5-5.1); SODIUM 138 mmol/L (136-145); TCO2 27 mmol/L (25-35); TOTAL BILIRUBIN 0.39 mg/dL (0.20-1.00); TOTAL PROTEIN 4.2 g/dL (6.3-8.3)
--- NOTE | 2018-07-10 07:07 | Diag Imaging Result Doc PS360 ---
EXAM: CHEST-PORTABLE HISTORY: respiratory failure TECHNIQUE: Portable chest single view COMPARISON: 07/09/2018 FINDINGS: No change in the left-sided PICC line. Heart is mildly prominent. There are basilar infiltrates and atelectasis. There is a small left pleural effusion. The overall appearance is similar to the prior exam. IMPRESSION: No interval improvement. Electronically signed by Nixon Hernandez 07/10/2018 7:05 AM
[2018-07-10] MEDS: BREO ELLIPTA 200/25 MCG INH INH SCH (08:31)
[2018-07-10] MEDS: LANOXIN IV SCH (08:55)
[2018-07-10] MEDS: LOVENOX SUBQ SCH (08:55)
[2018-07-10] MEDS: LASIX IV SCH (08:55)
[2018-07-10] MEDS: PEPCID IV SCH ×2 (08:56→20:12)
[2018-07-10] MEDS: SODIUM CHLORIDE 0.9% INJ SCH ×2 (08:56→20:12)
--- NOTE | 2018-07-10 10:45 | PROGRESS NOTE ---
DATE: 07/10/2018 Mr. Gudino is confused. Vital signs are stable. He has a PICC line on the left side. He has bilateral edema on both hands and legs. The left arm and wrist are very much swollen. He has pneumonia on the left side with pleural effusion. He is on IV Levaquin as well as linezolid 600 mg twice a day. His potassium is 2.9, BUN 30, creatinine 0.7. His white count was 4.15, hemoglobin 10 g, hematocrit 29.5. Overall, condition is stable, slowly improving. We will do the potassium supplementation. -4 cc: MD Malik Vizcaino MD
[2018-07-10] MEDS: D5 1/2 NS + KCL 30 MEQ 1,000 ML IV SCH (10:48)
[2018-07-10 12:38] LABS: RETIC% 0.14 % (0.8-2.1); RETIC-HE 26.7 PG (28.2-36.6)
[2018-07-10 12:45] LABS: INR 0.95; PROTIME 13.5 Seconds (11.0-16.0); PTT 38.6 Seconds (22.3-41.8)
[2018-07-10 13:33] LABS: TOTAL IRON 167 ug/dL (53-167); UNBOUND IRON 5 ug/dL (112-346)
[2018-07-10 13:38] LABS: TIBC 172 ug/dL
[2018-07-10 13:39] LABS: IRON SATURATION 97 %
[2018-07-10] MEDS: LEVAQUIN 500 MG/D5W 500 MG/100 ML IVPB IV SCH (19:41)
[2018-07-10] MEDS: ATIVAN IV PRN (20:18)
[2018-07-11] MEDS: ZYVOX 600 MG/D5W 600 MG/300 ML IVPB IV SCH ×2 (01:11→11:22)
[2018-07-11] MEDS: D5 1/2 NS + KCL 30 MEQ 1,000 ML IV SCH ×2 (03:00→22:11)
[2018-07-11] MEDS: ATIVAN IV PRN ×2 (03:00→21:00)
[2018-07-11] MEDS: DUONEB (A & A) INH SCH ×6 (03:45→23:00)
[2018-07-11 07:02] LABS: AGAP 10; BUN 31 mg/dL (8-22); CALCIUM 8.2 mg/dL (8.8-10.2); CHLORIDE 93 mmol/L (98-107); COSMO 275; ESTIMATED GFR > 60; GLUCOSE 107 mg/dL (70-104); POTASSIUM 3.5 mmol/L (3.5-5.1); SODIUM 134 mmol/L (136-145); TCO2 31 mmol/L (25-35)
--- NOTE | 2018-07-11 07:20 | Diag Imaging Result Doc PS360 ---
EXAM: CHEST-PORTABLE 07/11/2018 HISTORY: respiratory failure TECHNIQUE: AP portable at 0541 COMMENT: There is a PICC line on the left with its tip in the superior vena cava. There is pleural fluid and apparent atelectasis or pneumonia in the left lower lobe. There is hazy pulmonary opacity in the right base which is consistent with pulmonary edema. Compared to 07/10/2018 the pulmonary edema may be slightly worse. IMPRESSION: Pulmonary edema. Left pleural effusion and basilar atelectasis versus pneumonia. Electronically signed by Balaji Ashley 07/11/2018 7:17 AM
[2018-07-11 07:24] LABS: HEMOGLOBIN 10.8 g/dL (14.0-18.0); RBC 3.71 XMIL (4.7-6.1); WBC 4.91 X1000 (4.8-10.8)
[2018-07-11 07:25] LABS: BASO# 0.02 X1000 (0.0-0.2); BASO% 0.4 % (0.0-0.8); EOS# 0.15 X1000 (0.0-0.7); EOS% 3.1 % (0.0-10.0); HEMATOCRIT 31.9 % (42.0-52.0); LYMPH# 1.28 X1000 (1.2-3.4); LYMPH% 26.1 % (20.5-51.1); MCH 29.1 PG (27-31); MCHC 33.9 g/dL (33-37); MONO# 0.22 X1000 (0.11-0.59); MONO% 4.5 % (1.7-9.3); MPV 10.9 FL (7.4-10.4); NEUT# 3.24 X1000 (1.4-6.5); NEUT% 65.9 % (42.2-75.2); PLT 52 X1000 (130-400)
[2018-07-11] MEDS: LANOXIN IV SCH (08:13)
[2018-07-11] MEDS: SODIUM CHLORIDE 0.9% INJ SCH (08:13)
[2018-07-11] MEDS: LASIX IV SCH (08:13)
[2018-07-11] MEDS: PEPCID IV SCH ×2 (08:13→21:01)
[2018-07-11] MEDS: BREO ELLIPTA 200/25 MCG INH INH SCH (08:25)
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
--- NOTE | 2018-07-11 18:27 | HEMO/ONC CONSULTATION ---
DATE: 07/11/2018 REQUESTING PHYSICIAN: Dr. Laird. REASON FOR CONSULTATION: Thrombocytopenia. HISTORY OF PRESENT ILLNESS: Mr. Gudino is an 82-year-old male who is a patient of Dr. Malik Fink. He reported to the hospital complaining of a 2-week history of confusion with severe wheezing and coughing. Patient has an extensive pack-year history of around 90 pack years. He was admitted with COPD exacerbation, bronchitis/pneumonia. During his hospital course his platelet count has declined. On admission, he had a platelet count of 223,000. His platelet count dipped all the way down to 48,000 yesterday and is at 52,000 today. He also started to develop some anemia and we have evaluated him for hemolytic anemia already. We have been asked to come in again to evaluate his low platelet count. PAST MEDICAL HISTORY: 1. COPD. 2. Coronary artery disease. 3. Longstanding tobacco abuse. 4. History of CVA with left leg weakness. 5. Osteoarthritis. 6. Chronic constipation. PAST SURGICAL HISTORY: 1. Lumbar back surgery back in the 1960s. 2. Status post 2 stent placements back in 2009. 3. Right neck surgery. SOCIAL HISTORY: Patient is and his is at bedside. The patient continues to be confused at this time. He is retired from the [employer] in [facility]. He has a greater than 90 pack year history of smoking. He also drinks about a 6 pack of beer per week. FAMILY HISTORY: Positive for stomach cancer in his mother but no other significant history noted. REVIEW OF SYSTEMS: Twelve point review of systems has been completed and negative except for as expressed in the HPI. PHYSICAL EXAMINATION: Vital Signs: Temperature 98.3 degrees, heart rate 97, respirations 21, blood pressure 112/60, O2 saturation 92% on 3 L nasal cannula. General: This is a male lying in hospital bed in the ICU. He seems confused. His is at bedside. Head: Normocephalic, atraumatic. Eyes: Pupils equal, round, reactive. Ears, nose, throat, neck, and mouth: Oral mucosa appears to be normal. Cardiovascular: S1, S2 heard. Respiratory: Coarse breath sounds throughout with scattered wheezing and occasional rhonchi. Gastrointestinal: Abdomen is soft. Positive bowel sounds. Musculoskeletal: He has some disfigurement in his bilateral feet and his toes but no other abnormalities noted. He has edema x4 limbs. Neurologic: Patient is alert. He is confused and is not oriented. LABS AND STUDIES: White blood cells 4.91, hemoglobin 10.8, hematocrit 31.9, platelet count 52,000, haptoglobin is 266. ASSESSMENT AND PLAN: Thrombocytopenia. Patient has been exposed to Lovenox during this hospitalization as prophylaxis for DVT. 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 HIT antibodies have been sent off. He is off of all Lovenox currently. Platelet count is stable. I discussed this with the today who informed me that the patient is actually going to go on hospice. Dictated by YOON Sumner for Sharon Batista MD cc: MD Malik Winston MD I have seen and examined the patient and the above note reflects my history, physical examination and assessment and plan. Sharon Batista MD [facility]ITAL[facility]
--- NOTE | 2018-07-11 18:39 | HEMO/ONC CONSULTATION ---
DATE: 07/11/2018 ADDENDUM: ASSESSMENT: 1. Anemia. No evidence of hemolytic anemia. 2. Altered mental status. Management per the primary team. 3. Pneumonia. Management per the primary team. DISPOSITION: According to the patient's , the plan is for him to go home on hospice. We want to thank you for consulting us on Mr. Gudino. Dictated by YOON Sumner for Sharon Batista MD cc: MD Malik Winston MD I have seen and examined the patient and the above note reflects my history, physical examination and assessment and plan. Sharon COLE
[2018-07-11] MEDS: LEVAQUIN 500 MG/D5W 500 MG/100 ML IVPB IV SCH (20:36)
--- NOTE | 2018-07-11 21:17 | PULMONOLOGY PROGRESS NOTE ---
DATE: 07/11/2018 SUBJECTIVE: The patient responds to voice. He attempts to answer questions but responses are mumbled. He is currently in restraints. OBJECTIVE: Vital Signs: The patient has been afebrile for the last 24 hours. Blood pressure 101/59, heart rate 115, respiratory rate 21 and unlabored, oxygen saturation on 3 L per nasal cannula. HEENT: Pupils are equal. Oropharynx appears clear. Neck: Is supple. Chest: Reveals crackles at the left base. Cardiac: S1, S2. Abdomen: Soft with diminished bowel sounds. Extremities: Reveal 1+ peripheral edema. LABORATORIES: Chest x-ray reveals continued changes at the left base with mild infiltrate at the right base. White blood count 4.91, hemoglobin 10.8, platelet count 52,000. IMPRESSION: An 82-year-old with 1. Chronic obstructive pulmonary disease. 2. Left lower lobe pneumonia. 3. Ongoing delirium on hospital day #19. 4. Hypoxemic respiratory failure. 5. Protein calorie malnutrition. 6. Thrombocytopenia. DISCUSSION: 82-year-old with problems outlined above. Nineteen days with delirium suggest a poor prognosis. Current discussions considering discharge home with hospice are ongoing. He is a do not resuscitate level 1/allow natural if he were to have a life-threatening cardiac or pulmonary event. RECOMMENDATIONS: 1. Continue bronchial hygiene. 2. Continue Levaquin. 3. Agree with heparin-PF4 antibody. I will also discontinue Zyvox because this along with Zosyn are both common cause of thrombocytopenia. 4. Agree with ongoing end of life discussions. His prognosis appears to be very poor. cc: MD Malik Bae MD
[2018-07-12] MEDS: ATIVAN IV PRN ×3 (02:02→20:28)
[2018-07-12] MEDS: DUONEB (A & A) INH SCH ×6 (03:38→23:20)
[2018-07-12] MEDS: BREO ELLIPTA 200/25 MCG INH INH SCH (07:11)
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
[2018-07-12 09:44] LABS: BASO# 0.02 X1000 (0.0-0.2); BASO% 0.4 % (0.0-0.8); EOS# 0.14 X1000 (0.0-0.7); EOS% 2.7 % (0.0-10.0); HEMATOCRIT 32.8 % (42.0-52.0); HEMOGLOBIN 11.1 g/dL (14.0-18.0); LYMPH# 1.16 X1000 (1.2-3.4); LYMPH% 22.5 % (20.5-51.1); MCH 29.1 PG (27-31); MCHC 33.8 g/dL (33-37); MCV 86.1 FL (81-99); MONO# 0.21 X1000 (0.11-0.59); MONO% 4.1 % (1.7-9.3); MPV 10.7 FL (7.4-10.4); NEUT# 3.62 X1000 (1.4-6.5); NEUT% 70.3 % (42.2-75.2); PLT 52 X1000 (130-400); RBC 3.81 XMIL (4.7-6.1); RDW 13.9 % (11.5-14.5); WBC 5.15 X1000 (4.8-10.8)
[2018-07-12 09:57] LABS: AGAP 13; BUN 31 mg/dL (8-22); CALCIUM 8.9 mg/dL (8.8-10.2); CHLORIDE 93 mmol/L (98-107); COSMO 279; ESTIMATED GFR > 60; GLUCOSE 116 mg/dL (70-104); POTASSIUM 3.6 mmol/L (3.5-5.1); SODIUM 136 mmol/L (136-145); TCO2 30 mmol/L (25-35)
[2018-07-12] MEDS: LANOXIN IV SCH (10:22)
[2018-07-12] MEDS: PEPCID IV SCH (10:22)
[2018-07-12] MEDS: LASIX IV SCH (10:22)
[2018-07-12] MEDS: NICODERM PATCH TD SCH (14:42)
[2018-07-12] MEDS: LEVAQUIN 500 MG/D5W 500 MG/100 ML IVPB IV SCH (20:27)
[2018-07-12] MEDS ORDERED: PEPCID LIQUID PO SCH (21:00)
[2018-07-12] MEDS: PEPCID PO SCH (22:55)
[2018-07-13] MEDS: ATIVAN IV PRN ×2 (04:15→10:01)
[2018-07-13] MEDS: D5 1/2 NS + KCL 30 MEQ 1,000 ML IV SCH ×2 (05:19→05:22)
[2018-07-13] MEDS: DUONEB (A & A) INH SCH ×3 (05:35→10:36)
[2018-07-13 07:55] LABS: BASO# 0.01 X1000 (0.0-0.2); BASO% 0.2 % (0.0-0.8); EOS# 0.22 X1000 (0.0-0.7); EOS% 4.3 % (0.0-10.0); HEMATOCRIT 31.8 % (42.0-52.0); HEMOGLOBIN 10.8 g/dL (14.0-18.0); LYMPH% 21.7 % (20.5-51.1); MCH 29.3 PG (27-31); MCV 86.4 FL (81-99); MONO# 0.16 X1000 (0.11-0.59); MONO% 3.2 % (1.7-9.3); MPV 11.1 FL (7.4-10.4); NEUT# 3.58 X1000 (1.4-6.5); NEUT% 70.6 % (42.2-75.2); PLT 49 X1000 (130-400); RBC 3.68 XMIL (4.7-6.1); RDW 13.9 % (11.5-14.5); WBC 5.07 X1000 (4.8-10.8)
[2018-07-13 08:02] LABS: AGAP 11; BUN 34 mg/dL (8-22); CALCIUM 9.3 mg/dL (8.8-10.2); CHLORIDE 96 mmol/L (98-107); COSMO 282; ESTIMATED GFR > 60; GLUCOSE 106 mg/dL (70-104); POTASSIUM 3.7 mmol/L (3.5-5.1); SODIUM 137 mmol/L (136-145); TCO2 30 mmol/L (25-35)
[2018-07-13] MEDS: BREO ELLIPTA 200/25 MCG INH INH SCH (09:39)
[2018-07-13] MEDS: LASIX LIQUID PO SCH (09:59)
[2018-07-13] MEDS: PEPCID PO SCH ×2 (10:01→21:42)
[2018-07-13] MEDS: LANOXIN PO SCH (10:05)
--- NOTE | 2018-07-13 14:00 | PROGRESS NOTE ---
DATE: 07/13/2018 SUBJECTIVE: Patient has been a little more sedated today after Ativan. He was agitated some last night and remains confused. He is arousable. OBJECTIVE: Vital Signs: Afebrile, pulse 72, respirations 18, blood pressure 120/42. CV: Regular rate and rhythm. Lungs: Fairly clear. Some upper airway noise. Abdomen: Nondistended. Active bowel sounds. Extremities: No calf tenderness, cords or edema. No heel sores. Neuro: Patient arousable, but very confused. Moves all extremities. LABS: White count 5, hemoglobin 10.8, platelets 49. Sodium 137, potassium 3.7, chloride 96, CO2 of 30, BUN 34, creatinine 1.0, calcium 9.3. Heparin-induced platelet antibody is negative. ASSESSMENT: 1. Respiratory failure, now stabilized on oxygen at 2 to 3 L/minute per nasal cannula. 2. Left pneumonia. 3. Persistent delirium. 4. Advanced COPD. 5. Thrombocytopenia. 6. Longstanding upper airway noise. 7. Bed ridden with history of prior stroke and left leg weakness. 8. Chronic venous insufficiency, lower extremities. 9. Coronary artery disease. 10. Hypercholesterolemia. 11. Chronic constipation. 12. Longstanding tobacco abuse. 13. Paroxysmal atrial fibrillation on digoxin per cardiology. 14. Remote alcoholism. 15. Do Not Resuscitate level 1. PLAN: is getting things arranged at home for hospice care to start tomorrow. We will discharge him in the morning. We are changing all his medicines over to oral. We will discontinue the nebulizer treatments. Continue oxygen therapy. Continue Ativan as needed. cc: Malik Fink MD
[2018-07-13] MEDS: LEVAQUIN PO SCH (21:42)
[2018-07-13] MEDS: NICODERM PATCH TD SCH (23:44)
[2018-07-14] MEDS: ATIVAN IV PRN (00:40)
[2018-07-14] MEDS: D5 1/2 NS + KCL 30 MEQ 1,000 ML IV SCH (02:20)
--- NOTE | 2018-07-14 04:35 | PULMONOLOGY PROGRESS NOTE ---
DATE: 07/13/2018 SUBJECTIVE: The patient continues to have confusion requiring either sedation or restraints. OBJECTIVE: Vital Signs: The patient has been afebrile for the last 24 hours. Blood pressure 109/46, heart rate 91, respiratory rate 16, oxygen saturation 91%. HEENT: Pupils are equal and reactive. Oropharynx is clear but dry. Neck: Supple. Chest: Reveals coarse rhonchi bilaterally. Cardiac: S1, S2. Abdomen: Soft. Extremities: Without edema. LABORATORIES: White blood count 5.0, hemoglobin 10.8 platelet count 49,000. Sodium 137, potassium 3.7, chloride 96, bicarbonate 30, BUN 34, creatinine 1.0. IMPRESSION: An 82-year-old with 1. Persistent pneumonia at hospital day 21. 2. Left lower lobe pneumonia. 3. Chronic obstructive pulmonary disease. 4. Chronic hypoxemic respiratory failure. 5. Protein calorie malnutrition. 6. Thrombocytopenia. DISCUSSION: An 82-year-old with problems outlined above. His performance status remains poor. His prognosis remains poor given current hospital course. I agree with plans outlined per Dr. Fink. Anticipate discharge home with hospice. It is possible with discharge from the hospital and back in the home environment, he may have some clinical improvement. However, I suspect he will have a progressive downhill course. RECOMMENDATIONS: 1. Agree with oral antibiotics as you have initiated. 2. Anticipate discharge to Hospice tomorrow, as outlined by Dr. Fink. cc: MD Malik Bae MD
[2018-07-14] MEDS: BREO ELLIPTA 200/25 MCG INH INH SCH (08:26)
[2018-07-14] MEDS: LEVAQUIN PO SCH (10:19)
[2018-07-14] MEDS: PEPCID PO SCH (10:19)
[2018-07-14] MEDS: LANOXIN PO SCH (10:19)
[2018-07-14] MEDS: LASIX LIQUID PO SCH (10:20)
[2018-07-14 11:40] VITALS: BP 108/49
--- NOTE | 2018-07-14 17:31 | PROGRESS NOTE ---
DATE: 07/14/2018 SUBJECTIVE: The patient has been a little bit more alert according to his this morning. He is still having confusion prominent at times. OBJECTIVE: Afebrile, T-max 99.8. Vital signs stable. Pulse 82, respirations 19, blood pressure 108/49, O2 saturation on 2 L 95%.CV: RRR. Lungs: Mild rhonchi right lung field. Abdomen: Soft, nontender, nondistended. Extremities: No edema. Neuro: The patient is alert. He answers some questions. Does have some mild to moderate confusion. Has intelligible words. Follows some commands. Says he does not feel well. ASSESSMENT: 1. Respiratory failure improved, stable on 2 to 3 L/minute per nasal cannula O2. 2. Left pneumonia. 3. Persistent delirium. 4. Advanced chronic obstructive pulmonary disease. 5. Thrombocytopenia, stable with heparin-induced thrombocytopenia antibody negative. 6. Longstanding upper airway noise. 7. Bedridden with prior history of stroke and left leg weakness. 8. Chronic venous insufficiency lower extremities. 9. Coronary artery disease. 10. Hypercholesterolemia. 11. Chronic constipation. 12. Longstanding tobacco abuse. 13. Paroxysmal atrial fibrillation on digoxin per cardiology. 14. Remote alcoholism. 15. Do not resuscitate level 1. PLAN: Discharging patient home with hospice on O2 at 3 L/minute per nasal cannula. in agreement as are his children. Continue supportive measures. cc: Malik Fink MD
== END 2018-07-14 12:33 | disposition hospice, home (50) | DRG 193 ==
LOC: DIRADM 10:14 → 3N 11:18 → ICU 06-23 18:49 → 3N 07-11 15:22
PROVIDERS: ADMIT Family Medicine; ATTEND Family Medicine
CPT/HCPCS: 36569; 70450; 71010; 71020; 71045; 71046; 71275; 80048; 80053; 80162; 81001; 82140; 82550; 82805; 82948; 83010; 83540; 83550; 83735; 83880; 84100; 84439; 84443; 84484; 85025; 85045; 85379; 85610; 85730; 86022; 87040; 87088; 93005; 93010; 93306; 93970; 94640; 94660; 94761; 94799; 97110; 97162; A9270; J0360; J1160; J1630; J1650; J1940; J1956; J2020; J2060; J2543; J3480; J7050; J7060; Q9967; S0028; XXXXX